=== PATIENT | male | born 1955 | race Caucasian/White ===

== ENCOUNTER 2020-04-23 23:49 | Emergency (ER) | payer MEDICARE, SELFPAY ==
--- NOTE | ~2020-04-23 | CT_ITS ---
EXAMINATION: CT abdomen pelvis w con DATE: 04/24/2020 01:08 INDICATION: Low abdominal pain. TECHNIQUE: Computed tomography (CT) of the abdomen and pelvis was performed with 100 mL Omnipaque 350 intravenous contrast. Automated exposure control and iterative reconstruction technique were employe d. The dose-length product was 1248.82 mGy-cm. COMPARISON: CT abdomen and pelvis 04/03/2019 FINDINGS: The visualized portions of the lung bases demonstrate mild atelectasis. No pleural effusion . The heart size is normal. No pericardial effusion. There is a 4 mm cyst in the liver. The spleen, p ancreas, and adrenal glands are normal. There are gallstones in the gallbladder, which is normal in s ize. There is a 1 mm stone in right kidney. There is mild right hydronephrosis and hydroureter. There is a 2 mm stone at right ureterovesicular junction. There is a right inguinal hernia containing a po rtion of the bladder. There is a left inguinal hernia containing fat. There are cysts in left kidney measuring up to 1.5 cm. The prostate is mildly enlarged. There is diverticulosis of the colon without evidence of diverticulitis. There are no dilated loops of bowel. The appendix is normal. There are n o pathologically enlarged lymph nodes. There is no free intraperitoneal fluid. There is moderate lumb ar spondylosis. Thoracolumbar levoscoliosis is noted. IMPRESSION: 1. 2 mm stone at right ureterovesicular junction with mild right hydronephrosis and hydroureter. 2. 1 mm nonobstructing right kidney stone. 3. Right inguinal hernia containing a portion of the bladder. Left inguinal hernia containing fat. 4. Cholelithiasis. Reviewed, dictated and finalized at location A. IMPRESSION: 1. 2 mm stone at right ureterovesicular junction with mild right hydronephrosis and hydroureter. 2. 1 mm nonobstructing right kidney stone. 3. Right inguinal hernia containing a portion of the bladder. Left inguinal her karyna containing fat. 4. Cholelithiasis.
[2020-04-24 00:02] VITALS: BP 156/77; PULSE 57; RESP 14; TEMP 36.6; O2SAT 98
--- NOTE | 2020-04-24 00:09 | ED.ABDPAIN ---
HPI - Abdominal Pain General Chief Complaint: Abdominal Pain Stated Complaint: abd pain Time Seen by Provider: 04/24/20 00:01 History of Present Illness HPI narrative: Intermittent lower abdominal aleksander for about the past 4 hours. moves around the abdomen and sometimes to the back. Feels like pressure. Associated with a feeling of needing to have a bowel movement. Additionally noted bulging in the right inguinal region. Pain is currently mild. He has a h/o untreated prostate cancer. He reports mild dysuria and difficulty fully emptying his bladder. No different than usual. Related Data Allergies Allergy/AdvReac Type Severity Reaction Status Date / Time NKDA Allergy Unknown Uncoded 04/13/11 16:16 Review of Systems Review of Systems: All systems reviewed & are unremarkable except as noted in HPI and below Constitutional: Constitutional: Denies chills and Denies fever(s) Cardiovascular: Cardiovascular: Denies chest pain Respiratory: Respiratory: Denies dyspnea Gastrointestinal: Gastrointestinal: Reports abdominal pain, Denies diarrhea, Reports nausea and Denies vomiting Genitourinary: Genitourinary: Denies hematuria, Reports dysuria, Denies testicular pain, Denies urinary frequency and Denies urinary incontinence Musculoskeletal: Musculoskeletal: Reports back pain Neurologic: Denies dizziness and Denies weakness [facility] Past Medical History Medical History (Updated 04/25/20 @ 00:00 by Jonah Cantu) Prostate cancer Social History Social History (Updated 04/24/20 @ 00:14 by Les Diez MD) Smoking status: Never smoker Exam Const: General: healthy appearing, no acute distress and alert Orientation/consciousness: patient oriented x3 HENMT: Head: normal to inspection Neck: Neck: normal visual inspection and no lymphadenopathy Chest: Chest palpation & inspection: no tenderness Resp: Effort & Inspection: normal respiratory effort Auscultation: clear to auscultation bilaterally, no rales, no rhonchi and no wheezes Cardio: Jugular venous distension: no JVD Rate: regular rate Rhythm: regular rhythm Heart sounds: no murmurs GI: Inspection: non-distended GI Palp: Yes Soft to palpation, Yes Tenderness to palpation present (GI) (right inguinal region, full without palpable hernia), No Guarding due to palpation present (GI) and No Rebound tenderness present Skin: General skin exam: normal color Neuro: General: patient oriented x3 and moves all extremities Speech: normal speech Extrem: General: no edema Psych: Appearance: well kempt Affect: normal affect Course Vital Signs Vital signs: Vital Signs Temperature 36.6 C 04/24/20 00:02 Pulse Rate 57 L 04/24/20 00:02 Respiratory Rate 14 04/24/20 00:02 Blood Pressure 156/77 H 04/24/20 00:02 Pulse Oximetry 98 04/24/20 00:02 Temperature 36.6 C 04/24/20 02:14 Pulse Rate 61 04/24/20 02:14 Respiratory Rate 14 04/24/20 02:14 Blood Pressure 143/83 H 04/24/20 02:14 Pulse Oximetry 97 04/24/20 02:14 MDM - Abdominal Pain MDM Narrative Medical decision making narrative: Kidney stone passed into bladder. Symptoms resolved. Differential Diagnosis Differential diagnosis: Likely calculus of kidney, constipation, diverticulitis and other (hernia) Medical Records Attestation: I reviewed the patient's medical records. Lab Data Attestation: I reviewed the patient's lab results. Result diagrams: 04/24/20 00:33 04/24/20 00:33 Labs: Lab Results 04/24/20 04/24/20 04/24/20 Range/Units 00:33 00:33 00:33 WBC 11.1 H (4.5-10.0) K/mm3 RBC 4.99 (4.6-6.20) M/mm3 Hgb 15.5 (14.0-18.0) g/dL Hct 45.5 (42.0-52.0) % MCV 91.2 (80-100) fl MCH 31.1 (26-34) pg MCHC 34.1 (32-36) g/dl RDW 13.9 (11.5-14.5) % Plt Count 331 (150-375) k/mm3 MPV 10.5 H (7.4-10.4) fl Immature Gran % (Auto) 0.3 (0-0.5) % Neut % (Auto) 76.6 H (45.5-73.1) % Lymph % (Au
[2020-04-24 00:39] LABS: Basophils Percent Auto 0.4 % (0.2-1.2); Eosinophils Absolute Auto 0.2 K/mm3 (0-0.3); Hematocrit 45.5 % (42.0-52.0); Hemoglobin 15.5 g/dL (14.0-18.0); Immature Granulocyte Absolute 0.03 K/mm3 (0.00-0.031); Immature Granulocyte Percent A 0.3 % (0-0.5); Lymphocytes Absolute Auto 1.59 K/mm3 (0.9-3.2); Lymphocytes Percent Auto 14.3 % (18.3-44.2); Mean Corpuscular HGB Conc 34.1 g/dl (32-36); Mean Corpuscular Hemoglobin 31.1 pg (26-34); Mean Corpuscular Volume 91.2 fl (80-100); Mean Platelet Volume 10.5 fl (7.4-10.4); Monocytes Absolute Auto 0.7 K/mm3 (0.1-0.6); Monocytes Percent Auto 6.4 % (2.6-8.5); Neutrophils Absolute Auto 8.5 K/mm3 (1.3-6.7); Neutrophils Percent Auto 76.6 % (45.5-73.1); Platelet Count Result 331 k/mm3 (150-375); Red Blood Count 4.99 M/mm3 (4.6-6.20); Red Cell Distribution Width 13.9 % (11.5-14.5); White Blood Count 11.1 K/mm3 (4.5-10.0)
[2020-04-24 00:44] LABS: Add Urine Microscopic? YES; Appearance Urine Clear (Clear); Bilirubin Urine Negative (Negative); Blood Urine Negative (Negative); Calcium Oxalate Crystals Urine Present /hpf; Color Urine Yellow (Yellow); Glucose Urine UA Negative (Negative); Ketones Urine Trace mg/dL (Negative); Leukocyte Esterase Ur Negative LEU/UL (Negative); Mucus Urine Moderate /lpf; Nitrate Urine Negative (Negative); Protein Urine 2+ mg/dL (Negative); Squamous Epithelial Cell Urine Rare /hpf (Few); WBC Urine 0-3 /hpf
[2020-04-24 00:46] LABS: Specific Grav Ur 1.033 (1.001-1.035)
[2020-04-24 00:54] LABS: Alanine Aminotransferase 46 U/L (4-50); Albumin Level 4.7 g/dL (3.5-5.1); Alkaline Phosphatase 75 U/L (38-126); Anion Gap 12 mmol/L (8-16); Aspartate Amino Transferase 37 U/L (17-59); Bilirubin,Total 0.7 mg/dL (0.2-1.3); Blood Urea Nitrogen 24 mg/dL (9-20); Calcium 10.5 mg/dL (8.4-10.2); Carbon Dioxide 26 mmol/L (22-30); Chloride 103 mmol/L (98-107); Estimated CRCL calculation 66 ml/min; Estimated Glomerular Filt Rate > 60; Glucose 156 mg/dL (75-110); Lipase 52 U/L (23-300); Potassium 4.5 mmol/L (3.4-5.0); Sodium 141 mmol/L (137-145)
[2020-04-24 01:07] VITALS: BP 149/76; PULSE 56; RESP 16; O2SAT 98
[2020-04-24 02:14] VITALS: BP 143/83; PULSE 61; RESP 14; TEMP 36.6; O2SAT 97
== END 2020-04-24 02:17 | disposition home or self-care (01) ==
PROVIDERS: Emergency Provider Emergency Medicine; PCP Family Medicine Adolescent Medicine
DX: N13.2 Hydronephrosis with renal and ureteral calculous obstruction (principal); K40.90 Unilateral inguinal hernia, without obstruction or gangrene, not specified as recurrent; K80.20 Calculus of gallbladder without cholecystitis without obstruction
CPT/HCPCS: 36415; 74177; 80053; 81001; 83690; 85025; 99284; Q9967

== ENCOUNTER 2020-10-20 13:52 | Outpatient (CLI) | payer MEDICARE, SELFPAY ==
--- NOTE | ~2020-10-20 | XR_ITS ---
EXAMINATION: XR chest 2V DATE: 10/20/2020 15:14 INDICATION: Malignant neoplasm of prostate. TECHNIQUE: Frontal and lateral views of the chest were obtained. COMPARISON: Chest 2 views 04/03/2019, CT abdomen and pelvis 04/24/2020 FINDINGS: The chest demonstrates clear lungs without pneumonia, pleural effusion, or pneumothorax. Th e heart size is normal. No sclerotic bone lesions are identified. IMPRESSION: 1. No acute cardiopulmonary disease. Reviewed, dictated and finalized at location A.
--- NOTE | 2020-10-20 14:51 | ECG_ITS ---
Measurements Intervals [place] Rate: 44 P: 56 [place]: 191 QRS: -18 QRSD: 125 T: 18 QT: 423 QTc: 365 Interpretive Statements SINUS BRADYCARDIA INTRAVENTRICULAR CONDUCTION DELAY ABNORMAL ECG Electronically Signed On 10-20-2020 16:54:39 CDT by Robert Watson D.O.
[2020-10-20 15:19] LABS: Basophils Percent Auto 0.5 % (0.2-1.2); Eosinophils Absolute Auto 0.3 K/mm3 (0-0.3); Eosinophils Percent Auto 4.4 % (0-4.4); Hematocrit 46.9 % (42.0-52.0); Hemoglobin 15.5 g/dL (14.0-18.0); Immature Granulocyte Absolute 0.01 K/mm3 (0.00-0.031); Immature Granulocyte Percent A 0.1 % (0-0.5); Lymphocytes Absolute Auto 2.31 K/mm3 (0.9-3.2); Lymphocytes Percent Auto 31.6 % (18.3-44.2); Mean Corpuscular Hemoglobin 30.3 pg (26-34); Mean Corpuscular Volume 91.6 fl (80-100); Mean Platelet Volume 10.7 fl (7.4-10.4); Monocytes Absolute Auto 0.8 K/mm3 (0.1-0.6); Monocytes Percent Auto 10.9 % (2.6-8.5); Neutrophils Absolute Auto 3.8 K/mm3 (1.3-6.7); Neutrophils Percent Auto 52.5 % (45.5-73.1); Platelet Count Result 289 k/mm3 (150-375); Red Blood Count 5.12 M/mm3 (4.6-6.20); Red Cell Distribution Width 14.1 % (11.5-14.5); White Blood Count 7.3 K/mm3 (4.5-10.0)
[2020-10-20 15:23] LABS: Add Urine Microscopic? YES; Appearance Urine Clear (Clear); Bilirubin Urine Negative (Negative); Blood Urine 1+ (Negative); Color Urine Yellow (Yellow); Glucose Urine UA Negative (Negative); Ketones Urine Negative (Negative); Leukocyte Esterase Ur Negative LEU/UL (Negative); Mucus Urine Rare /lpf; Nitrate Urine Negative (Negative); Protein Urine 1+ mg/dL (Negative); RBC Urine 21-50 /hpf (0-2); Specific Grav Ur 1.025 (1.001-1.035); Urobilinogen Urine Negative mg/dL (<2.0); WBC Urine 0-3 /hpf
[2020-10-20 15:26] LABS: INR 0.9; Prothrombin Time 12.2 Seconds (11.1-14.7)
[2020-10-20 15:27] LABS: Partial Thromboplastin Time 27.8 SECONDS (22.3-36.8)
[2020-10-20 15:32] LABS: Alanine Aminotransferase 36 U/L (4-50); Alkaline Phosphatase 65 U/L (38-126); Anion Gap 8 mmol/L (8-16); Aspartate Amino Transferase 31 U/L (17-59); Bilirubin,Total 0.6 mg/dL (0.2-1.3); Blood Urea Nitrogen 22 mg/dL (9-20); Calcium 9.8 mg/dL (8.4-10.2); Carbon Dioxide 32 mmol/L (22-30); Chloride 102 mmol/L (98-107); Estimated Glomerular Filt Rate > 60; Glucose 124 mg/dL (75-110); Sodium 142 mmol/L (137-145)
== END 2020-10-20 13:53 | disposition home or self-care (01) ==
LOC: ANHSURGERY 13:54
PROVIDERS: PCP Family Medicine Adolescent Medicine; Visit Provider Urology
DX: Z01.818 Encounter for other preprocedural examination (principal); C61 Malignant neoplasm of prostate; R00.1 Bradycardia, unspecified; I45.4 Nonspecific intraventricular block
CPT/HCPCS: 36415; 71046; 80053; 81001; 85025; 85610; 85730; 86850; 86900; 86901; 93005

== ENCOUNTER → 2020-10-26 01:42 | Outpatient (CLI) | payer MEDICARE, SELFPAY ==
[2020-10-26 19:04] LABS: SARS-CoV-2 RNA PCR Negative
== END ==
PROVIDERS: PCP Family Medicine Adolescent Medicine; Visit Provider Urology
DX: Z01.812 Encounter for preprocedural laboratory examination (principal); Z20.822 Contact with and (suspected) exposure to COVID-19
CPT/HCPCS: C9803; U0003; U0005

== ENCOUNTER 2020-10-29 01:44 | Day surgery (SDC) | payer MEDICARE, SELFPAY ==
[2020-10-20 14:17] VITALS: BP 144/80; PULSE 54; RESP 20; TEMP 36.8; O2SAT 96; BMI 35.9
--- NOTE | 2020-10-22 07:03 | PM.IMHP ---
H&P: HPI History of Present Illness Date/Time: 10/22/20 07:03 The patient is a 65-year-old male who was found to have PSA elevation and October 27-.. Prostate ultrasound and biopsy revealed a 32 cc prostate with 6 of 12 cores showing [place] 6 and 3+4=7 adenocarcinoma consistent with a unfavorable intermediate risk prostate cancer. Sehy opted for active surveillance. Genomic testing was consistent with an unfavorable intermediate risk prostate cancer. MRI of the prostate revealed possible extracapsular extension on the right with possible perineural invasion. After careful consideration of the options, including ongoing active surveillance, radiation therapy in its various forms and robotic prostatectomy he has elected for the latter. He is aware the risk of this including, but not limited to, adverse cardiopulmonary events, rectal injury, urinary incontinence and erectile dysfunction. during the course of evaluation is CT scan of the abdomen pelvis showed no evidence of metastatic disease but revealed a sizable right inguinal hernia with protrusion his bladder into the hernia. Patient has been seen by Dr. Dontae Gabriel and we coordinated a approach where he will be available for robotic assisted hernia repair. Chief Complaint: Prostate cancer Review of Systems Cardiovascular: Cardiovascular: Denies chest pain, Denies lightheadedness, Denies palpitations and Denies dyspnea Respiratory: Respiratory: Denies dyspnea Gastrointestinal: Gastrointestinal: Denies diarrhea, Denies nausea and Denies vomiting Genitourinary: Genitourinary: Denies hematuria and Denies dysuria Endocrine: Endocrine: Denies palpitations [facility] Past Medical History Medical History Asthma Glaucoma Hyperlipidemia Kidney calculi Prostate cancer Type 2 diabetes mellitus Surgical History Surgical History Hx of arthroscopy of right knee Hx of tonsillectomy Family History Family History Father Dementia Acute myocardial infarction Heart disease Mother Family history of thyroid problem History of diverticulitis Grandparent Lung cancer Diabetes mellitus Heart disease Social History Social History Smoking packs per day: 1 Smoking cigarettes per day: 20.0 Years smoked: 30 Smoking pack-years: 30.00 Smoking status: Former smoker Tobacco type: cigarettes Additional smoking assessment comments: [place] QU[place] 2004? Alcohol intake: current Substance use: never Substance use type: does not use Gender identity (if verbalized by the patient): Male Spiritual care concerns: No Meds Home Medications and Allergies Home Medications Medication Instructions Recorded Confirmed Type albuterol sulfate 1.25 mg/3 mL 1.25 mg INHALATION Q4-6H PRN 09/29/20 10/20/20 History solution for nebulization atorvastatin 40 mg tablet 40 mg PO QAM 09/29/20 10/20/20 History brimonidine 0.2 %-timolol 0.5 % 1 drp EACH EYE Q12H 09/29/20 10/20/20 History eye drops latanoprost 0.005 % eye drops 1 drp EACH EYE HS 09/29/20 10/20/20 History tamsulosin 0.4 mg capsule 0.4 mg PO QAM 09/29/20 10/20/20 History aspirin [Aspir-81] 81 mg PO DAILY 10/20/20 10/20/20 History metformin 2,000 mg PO HS 10/20/20 10/20/20 History multivitamin [Multi-Vitamin] 1 tablet PO DAILY 10/20/20 10/20/20 History Allergies Allergy/AdvReac Type Severity Reaction Status Date / Time shrimp Allergy Intermediate Rash Verified 10/20/20 14:09 Exam Const: General: no acute distress Resp: Effort & Inspection: normal respiratory effort GI: Inspection: non-distended GI Palp: No abdominal tenderness and No Guarding due to palpation present (GI) Auscultation: normal bowel sounds Assessment and Plan Assessment and plan (1) Prostate cancer:
--- NOTE | 2020-10-28 10:09 | WPDANESEPPF ---
Anes - Initial Pre Proc Eval Procedure: Operation Date: 10/29/20 07:30 Proposed Procedures p Robotic Assisted Prostatectomy with Bilateral Pelvic Lymph Node Dissection - Devan Soalno MD s Laparoscopic Right Inguinal Hernia Repair With Mesh, Possible Left Inguinal Hernia Repair, Davinci Assisted - Oz Gabriel DO Date/Time: 10/28/20 10:09 Surgeon: Devan Solano MD Pre Op Diagnosis: prostate CA, Right Inguinal Hernia Patient Data Age: 65 Gender: M Height: 1.68 m Weight: 101 kg Last Vital Signs Temp 36.8 C 10/20/20 14:17 Pulse 54 L 10/20/20 14:17 Resp 20 10/20/20 14:17 BP 144/80 H 10/20/20 14:17 Pulse Ox 96 10/20/20 14:17 Allergies Allergy/AdvReac Type Severity Reaction Status Date / Time shrimp Allergy Intermediate Rash Verified 10/29/20 05:56 Home Medications Medication Instructions Recorded Confirmed Type albuterol sulfate 1.25 mg/3 mL 1.25 mg INHALATION Q4-6H PRN 09/29/20 10/29/20 History solution for nebulization atorvastatin 40 mg tablet 40 mg PO QAM 09/29/20 10/29/20 History brimonidine 0.2 %-timolol 0.5 % 1 drp EACH EYE Q12H 09/29/20 10/29/20 History eye drops latanoprost 0.005 % eye drops 1 drp EACH EYE HS 09/29/20 10/29/20 History tamsulosin 0.4 mg capsule 0.4 mg PO QAM 09/29/20 10/29/20 History aspirin [Aspir-81] 81 mg PO DAILY 10/20/20 10/29/20 History metformin 2,000 mg PO HS 10/20/20 10/29/20 History multivitamin [Multi-Vitamin] 1 tablet PO DAILY 10/20/20 10/29/20 History ECG: Date of Service: 10/20/20 Procedure(s): CA 12 lead EKG Accession Number(s): [id number] cc: ~ Measurements Intervals [place] Rate: 44 P: 56 [place]: 191 QRS: -18 QRSD: 125 T: 18 QT: 423 QTc: 365 Interpretive Statements SINUS BRADYCARDIA INTRAVENTRICULAR CONDUCTION DELAY ABNORMAL ECG Electronically Signed On 10-20-2020 16:54:39 CDT by Robert Watson D.O. Dictated By: Robert Watson DO 10/20/20 [id number] Patient hx anesthesia problems: none Family hx anesthesia problems: none PMFSH Past Medical History Medical History (Updated 10/28/20 @ 10:11 by Roney Spann MD) Asthma BMI 36.0-36.9,adult Glaucoma Hyperlipidemia Kidney calculi Prostate cancer Right inguinal hernia Type 2 diabetes mellitus Surgical History Surgical History Hx of arthroscopy of right knee Hx of tonsillectomy Family History Family History Father Dementia Acute myocardial infarction Heart disease Mother Family history of thyroid problem History of diverticulitis Grandparent Lung cancer Diabetes mellitus Heart disease Social History Social History Smoking packs per day: 1 Smoking cigarettes per day: 20.0 Years smoked: 30 Smoking pack-years: 30.00 Smoking status: Former smoker Tobacco type: cigarettes Additional smoking assessment comments: STATES QUIT 2004? Alcohol intake: current Alcohol use details: STATES RARELY 2-3 DRINKS MONTH Substance use: never Substance use type: does not use Living arrangements: with family Gender identity (if verbalized by the patient): Male Spiritual care concerns: No Anes - Eval Final PreProcedure Day of Procedure 10/28/20 10:09 Patient weight: obese Heart: regular rate and rhythm Lungs: clear to auscultation and normal air movement Airway: Mallampati scale class II Neurological: alert and oriented Last oral intake: >/= 8 hours ASA classification: III Emergent: no Anesthetic plan: proceed Anesthesia type and monitoring: general ETT Informed Consent
[2020-10-29] VITALS (11 sets, daily range): BP systolic 107–151; BP diastolic 51–83; PULSE 44–62; RESP 10–16; TEMP 36.2–36.8; O2SAT 97–100
[2020-10-29] MEDS: LACTATED RINGERS 1,000 ML 30 ML IV CONT ×2 (06:25→13:03)
[2020-10-29] MEDS: KETOROLAC 15 MG/ML VIAL (*BKC) IV PUSH ×2 (06:27→20:47)
[2020-10-29] MEDS: ACETAMINOPHEN 500 MG TABLET 1000 MG PO (06:28)
[2020-10-29 06:35] LABS: Glucose Point of Care 108 (65-105)
--- NOTE | 2020-10-29 06:39 | WPDHPUPDATE1 ---
History and Physical Update Update Date/Time: 10/29/20 06:39 History and Physical has been reviewed, including an updated exam of the patient. There are NO changes in the patient's condition. Risks, benefits, and alternatives have been discussed and questions answered. Patient agrees to proceed with procedure.
--- NOTE | 2020-10-29 07:18 | WPDHPUPDATE1 ---
History and Physical Update Update Date/Time: 10/29/20 07:18 History and Physical has been reviewed, including an updated exam of the patient. There are NO changes in the patient's condition. Risks, benefits, and alternatives have been discussed and questions answered. Patient agrees to proceed with procedure.
[2020-10-29] MEDS: ceFAZolin 2 GM/D5W 50 ML 2 GM/50 ML BAG IVPB (07:34)
--- NOTE | 2020-10-29 10:42 | SUR.OPER ---
total u/a 100ml smith color urine. Urine esthela with mix insertion and pink post insertion and irrigation per Dr Solano.
--- NOTE | 2020-10-29 11:12 | SUR.OPER ---
[address] JIMENEZ.
[2020-10-29] MEDS: ceFAZolin SODIUM 1 GM VIAL IV PUSH (11:30)
--- NOTE | 2020-10-29 11:34 | SUR.OPER ---
PATIENT MAINTAINS POSITIONING:UNCHANGED. NELSON CONTINUES TO DRAIN MEDIUM PINK URINE.
--- NOTE | 2020-10-29 11:52 | PM.PROC ---
Procedure Note - Detailed Date of procedure: 10/29/20 Pre-op diagnosis: Prostate Cancer, Right Inguinal Hernia Post-op diagnosis: same Procedure performed: 1. Robotic-assisted, laparoscopic prostatectomy 2. Robitic-assisted right inguinal hernia repair (Dr. Gabriel) Description of procedure: The patient was brought to the operative suite, where he was prepped and draped in routine sterile fashion while in a dorsal lithotomy, deep Trendelenburg position. A supraumbilical 10 mm trocar was placed after insufflation of the abdomen with a Veress needle. Three robotic ports were then placed under direct vision. Two of these were placed in the right lower quadrant - 10 cm and 20 cm lateral to, and in line with, the umbilicus. A third robotic trocar was placed 10 cm to the left of the umbilicus, and 20 cm to the left of the umbilicus, a 12 mm standard laparoscopic trocar was placed to be used as an bus assistant port. Lastly, a 5 mm trocar was placed in the left upper quadrant midway between the umbilicus and the left robotic trocar. Attention was then turned to the prostatectomy. I opted for a posterior approach in this patient. An incision was made in the parietal peritoneum along the posterior bladder/posterior prostate about 2 cm above the reflection of the peritoneum over the anterior rectum. The seminal vesicles and vas deferens were immediately identified. Dissection is undertaken in a fashion so as to avoid electrocautery as much as possible, particularly near the tips of the seminal vesicles. Dissection was also carried out in the midline so as to avoid any encounters with the ureters. The vas deferens and the seminal vesicles were dissected in their entirety to the base of the prostate. The plane anterior to Denoviller's fascia, anterior to the rectum and posterior to the prostate was then developed. The bladder is known to have herniated into the right inguinal canal the preoperative CT scan. After incising the peritoneum along the anterior abdominal wound was able to reduce the herniated dome of the bladder. There is a large hernia defect in the right inguinal canal. The bladder was then dropped from the anterior abdominal and pelvic wall. Repair of this hernia will be undertaken by Dr. Gabriel at the termination of the prostatectomy.The endopelvic fascia was identified and incised bilaterally, allowing for dissection of the posterior-lateral aspect of the prostate. The puboprostatic ligaments were transected near their origin from the posterior pubic ramus. This posterior lateral dissection of the prostate is also undertaken in a fashion so as to avoid electrocautery as much as possible. The dorsal vein of the penis is then secured with an 0 -Vicryl ligature. Attention is then turned to the bladder neck. The anterior bladder neck is incised at the vesico-prostatic junction. The previously placed urethral catheter was drawn through the urethrotomy. A very small bladder neck was maintained throughout the remainder of this dissection. The posterior bladder neck was incised in a fashion so as to avoid any injury to the ureteral orifices. Again, the small aperture of the bladder neck was maintained. The previously dissected vas deferens and the seminal vesicles were brought through the posterior bladder neck incision. The lateral prostatic pedicles were then carefully dissected from the lateral aspect of the prostate bilaterally. The prostatic pedicles were secured with Weck clips and transected. The neurovascular bundles were carefully dissected from the posterior-lateral aspect of the prostate. The dorsal vein of the penis was incised with electrocautery. Using cold scissors, the urethra was incised. After withdrawing the previously placed urethral catheter, the posterior urethra was sharply incised, as was the rectalurethralis muscle. Attention was then turned to a bilateral pelvic lymphadenectomy. After inspection of the right iliac fossae opted
[2020-10-29] MEDS: BUPIVACAINE/EPINEPHRINE 0.5% 30 ML VIAL INFILTRATE (12:28)
--- NOTE | 2020-10-29 12:50 | PM.PROC ---
Procedure Note - Detailed Date of procedure: 10/29/20 Pre-op diagnosis: Right inguinal hernia Post-op diagnosis: same (Indirect right inguinal hernia) Procedure performed: Laparoscopic right inguinal hernia repair with Progrip mesh, da Leonides assisted Description of procedure: Procedure as well as risks, benefits, and alternatives were discussed with the patient. Written consent was obtained and placed in chart prior to procedure. Patient was brought back to surgical suite. He was placed supine on operating table. Time-out was done to confirm patient and procedure. He was then intubated by Anesthesia Department. His abdomen was prepped and draped in sterile fashion using chlorhexidine prep. Patient initially underwent robotic prostatectomy by Dr. Solano. Please refer to his operative report for details and port placement. I then proceeded with right inguinal hernia repair once his portion of the procedure was completed. I moved over to the robotic console and took control of the camera and instruments. After careful inspection of the abdominal cavity, I began scoring the peritoneum along the right lower quadrant using scissors with electrocautery. The more medial peritoneum had already been taken down with the bladder. The preperitoneal plane was entered and this was carefully dissected caudally along the inferior epigastric vessels. Careful dissection with scissors with electrocautery and blunt dissection was used to continue this dissection. I dissected far enough laterally to allow for mesh placement, and also dissected medially to identify the pubic arch and Michael's ligament which had already been skeletonized by Urology. The hernia sac was identified and carefully dissected posteriorly. The cord contents were also identified and the peritoneum was carefully dissected far enough posteriorly to allow for mesh placement. Once an adequate pocket was created, I then placed the mesh within the preperitoneal pocket and carefully unfolded it. The mesh was centered on the hernia defect with adequate overlap circumferentially. The inferior edge of the mesh was inspected to ensure that it was far enough away from the peritoneal edge. The mesh appeared in proper position overlying the entire myopectineal orifice. The peritoneum was then closed over the mesh using a 3-0 V-lock running absorbable suture. This took several running sutures to bring all of the peritoneum back over the mesh. The robotic instruments were removed. The robotic arms were disengaged from the ports and moved away from the bedside. The patient was flattened out in bed, the ports were removed under direct visualization, and the pneumoperitoneum was released. The Endo-Catch bag containing the prostate was then grasped and delivered through the supraumbilical port. the fascia of this port site was then extended about 1 cm cephalad. I then carefully extracted the Endo-Catch bag through this port site. The fascia of the supraumbilical incision was then reapproximated using 1. PDS running suture. Gonzalez's was then reapproximated using 3 0 plain gut simple interrupted sutures. The skin of the incisions was then approximated using 4 O Vicryl subcuticular sutures and then Exofin glue was applied on top. The patient was awakened from anesthesia, extubated, and transferred to recovery. Implants: Progrip Mesh 12cm x 16cm Anesthesia: GETA and local (0.5% bupivicaine with epi) Surgeon: Oz Gabriel DO Estimated blood loss (mL): 10 Complications: No immediate complications Condition: stable Disposition: observation Findings: This is a 65-year-old man who presented with a right groin bulge for the past 10-15 years. Over the past several months he has noticed pain in this area with activity. CT of his abdomen and pelvis was obtained in relation to workup for prostate cancer. CT showed evidence of a large right inguinal hernia as well as another small left inguinal hernia. On physical exam
[2020-10-29 13:12] LABS: Glucose Point of Care 171 (65-105)
[2020-10-29] MEDS: fentaNYL CITRATE INJ (*CRX) 100 MCG/2 ML VIAL 25 MCG IV PUSH ×4 (13:31→13:58)
--- NOTE | 2020-10-29 13:57 | SUR.PHASEI ---
[id number] sbar faxed floor notified
--- NOTE | 2020-10-29 14:20 | ADMGEN ---
This patient, Ervin Davidson, was admitted to Medical Room 248-. Patient/family oriented to hospital policies and general routines including ID bracelet, bed and alarms, visiting hours, pain management, procedures, bathroom and other care routines, personal items, smoking policy, room service/diet, and visiting hours. Information on how to activate the Rapid Response Team has been discussed. Patient/Family are encouraged to report perceived risks to care and to ask questions if they do not understand what they are told or what they should do.
[2020-10-29] MEDS: LACTATED RINGERS 1,000 ML 125 ML IV CONT ×2 (15:00→23:18)
[2020-10-29] MEDS: HYOSCYAMINE SULFATE 0.125 MG TABLET SUBLINGUAL (15:43)
[2020-10-29] MEDS: DOCUSATE SODIUM 100 MG CAPSULE PO (16:33)
[2020-10-29 16:36] LABS: Glucose Point of Care 118 (65-105)
[2020-10-29] MEDS: TIMOLOL MALEATE 0.5% OP SOLN 5 ML BOTTLE 1 DROP EACH EYE (17:27)
[2020-10-29] MEDS: BRIMONIDINE TARTRATE 0.2% OP SOLN 5 ML BTL 1 DROP EACH EYE (17:27)
[2020-10-29] MEDS: LATANOPROST 0.005% OP SOLN 2.5 ML BTL 1 DROP EACH EYE (17:27)
[2020-10-30] VITALS: BP 131/64; PULSE 55; RESP 16; TEMP 36.1; O2SAT 99
[2020-10-30 05:00] VITALS: BP 115/63; PULSE 52; RESP 16; TEMP 36.1; O2SAT 98
[2020-10-30 05:39] LABS: Hematocrit 37.3 % (42.0-52.0); Hemoglobin 12.5 g/dL (14.0-18.0)
[2020-10-30 06:07] LABS: Potassium 3.7 mmol/L (3.4-5.0)
[2020-10-30 06:18] LABS: Anion Gap 5 mmol/L (8-16); Blood Urea Nitrogen 8 mg/dL (9-20); Calcium 8.4 mg/dL (8.4-10.2); Carbon Dioxide 29 mmol/L (22-30); Chloride 105 mmol/L (98-107); Estimated CRCL calculation 88 ml/min; Estimated Glomerular Filt Rate > 60; Glucose 110 mg/dL (75-110); Sodium 139 mmol/L (137-145)
--- NOTE | 2020-10-30 06:40 | WPDUROPN2 ---
Progress Note: A&P Assessment and Plan (1) Prostate cancer: Code(s): C61 - Malignant neoplasm of prostate Status: Acute (2) Corneal abrasion: Code(s): S05.00XA - Injury of conjunctiva and corneal abrasion without foreign body, unspecified eye, initial encounter Status: Acute Assessment and Plan: Corneal abrasion protocol enacted. Increase diet/ambulation. Likely home later today. Subjective Subjective Date/Time Seen: 10/30/20 06:40 Right corneal irritation mildly uncomfortable - otherwise doing well. Review of Systems Cardiovascular: Cardiovascular: Denies chest pain, Denies lightheadedness, Denies palpitations and Denies dyspnea Respiratory: Respiratory: Denies dyspnea Gastrointestinal: Gastrointestinal: Denies diarrhea, Denies nausea and Denies vomiting Genitourinary: Genitourinary: Denies hematuria and Denies dysuria Endocrine: Endocrine: Denies palpitations Exam Const: General: no acute distress Resp: Effort & Inspection: normal respiratory effort GI: Inspection: non-distended GI Palp: No abdominal tenderness and No Guarding due to palpation present (GI) Auscultation: normal bowel sounds Objective Data Vital Signs Vital Signs: Vital Signs - 24 hr 10/29/20 13:05 10/29/20 13:20 10/29/20 13:35 Temperature 97.2 F L Pulse Rate 59 L 44 L 57 L Respiratory Rate 15 12 10 L Blood Pressure 107/52 L 115/51 L 129/73 Pulse Oximetry 100 100 100 10/29/20 13:50 10/29/20 14:20 10/29/20 14:35 Temperature 97.2 F L 97.2 F L Pulse Rate 62 58 L 54 L Respiratory Rate 10 L 16 16 Blood Pressure 120/83 134/72 130/66 Pulse Oximetry 98 97 97 10/29/20 15:05 10/29/20 16:05 10/29/20 19:56 Temperature 97.2 F L 98.2 F 97.1 F L Pulse Rate 54 L 59 L 57 L Respiratory Rate 16 16 16 Blood Pressure 151/74 H 143/70 H 124/59 L Pulse Oximetry 100 98 98 10/29/20 21:50 10/30/20 00:00 10/30/20 05:00 Temperature 96.9 F L 97.0 F L Pulse Rate 55 L 52 L Respiratory Rate 16 16 Blood Pressure 131/64 115/63 Pulse Oximetry 98 99 98 Intake/Output Intake/Output: Intake & Output 10/27/20 10/28/20 10/29/20 10/30/20 23:59 23:59 23:59 23:59 Intake Total 1950 400 Output Total 1500 1000 2300 Balance -1500 950 -1900 Meds/Results Medications: Active Medications Generic Name Dose Route Start Last Admin Trade Name Freq PRN Reason Stop Dose Admin Albuterol 1.25 mg 10/29/20 14:11 Albuterol Sulfate Neb 2.5 Mg/3 Ml Inh INHALATION Q4-6H PRN Wheezing Artificial Tears 1 drop 10/29/20 14:28 10/29/20 20:01 Artificial Tears Op Soln 15 Ml Bottle EACH EYE 1 drop Q2H PRN Administration Dry Eye(s) Atorvastatin Calcium 40 mg 10/30/20 09:00 Atorvastatin 40 Mg Tablet PO QAM JAYLON Brimonidine Tartrate 1 drop 10/29/20 21:00 10/29/20 17:27 Brimonidine Tartrate 0.2% Op Soln 5 Ml Btl EACH EYE 1 drop Q12HR JAYLON Administration Dextrose 12.5 gm 10/29/20 14:11 Dextrose 50% 25 Gm/50 Ml Syringe IV PUSH PRN PRN Hypoglycemia Protocol Docusate Sodium 100 mg 10/29/20 17:00 10/29/20 16:33 Docusate Sodium 100 Mg Capsule PO 100 mg BID JAYLON Administration Glucagon 1 mg 10/29/20 14:11 Glucagon For Inj 1 Mg Vial IM PRN PRN Hypoglycemia Protocol Glucose 15 gm 10/29/20 14:11 Glucose Oral Gel 15 Gm Of Glucse In 37.5 Gm Tube PO PRN PRN Hypoglycemia Protocol Hyoscyamine 0.125 mg 10/29/20 14:11 10/29/20 15:43 Hyoscyamine Sulfate 0.125 Mg Tablet SUBLINGUAL 0.125 mg Q4H PRN Administration Bladder Spasm Lactated Ringer's 1,000 mls @ 125 mls/hr 10/29/20 14:11 10/29/20 23:18 Lr - Lactated Ringers Iv IV CONT 125 mls/hr .Q8H JAYLON Administration Acetaminophen 1,000 mg in 100 mls @ 400 mls/hr 10/29/20 18:00 10/30/20 05:45 Ofirmev 1,000 Mg Ivpb IVPB 10/30/20 18:01 400 mls/hr Q6HR JAYLON Administration Dextrose 1,000 mls @ 100 mls/hr 10/29/20 14:11 De
[2020-10-30 07:56] VITALS: BP 118/72; PULSE 56; RESP 16; TEMP 35.7; O2SAT 98
[2020-10-30 07:58] LABS: Glucose Point of Care 113 (65-105)
--- NOTE | 2020-10-30 08:02 | PM.PNGS ---
Progress Note: A&P Assessment and Plan (1) Right inguinal hernia: Code(s): K40.90 - Unilateral inguinal hernia, without obstruction or gangrene, not specified as recurrent Status: Acute Assessment and Plan: Doing well from my standpoint, OK to discharge today. Follow up in 2 weeks as scheduled Subjective Subjective Date/Time Seen: 10/30/20 08:02 Interval history: Doing well. Pain controlled. Exam GI: Inspection: incision (intact with glue) GI Palp: No Hernia present Objective Data Vital Signs Vital Signs: Vital Signs - 24 hr 10/29/20 13:05 10/29/20 13:20 10/29/20 13:35 Temperature 36.2 C L Pulse Rate 59 L 44 L 57 L Respiratory Rate 15 12 10 L Blood Pressure 107/52 L 115/51 L 129/73 Pulse Oximetry 100 100 100 10/29/20 13:50 10/29/20 14:20 10/29/20 14:35 Temperature 36.2 C L 36.2 C L Pulse Rate 62 58 L 54 L Respiratory Rate 10 L 16 16 Blood Pressure 120/83 134/72 130/66 Pulse Oximetry 98 97 97 10/29/20 15:05 10/29/20 16:05 10/29/20 19:56 Temperature 36.2 C L 36.8 C 36.2 C L Pulse Rate 54 L 59 L 57 L Respiratory Rate 16 16 16 Blood Pressure 151/74 H 143/70 H 124/59 L Pulse Oximetry 100 98 98 10/29/20 21:50 10/30/20 00:00 10/30/20 05:00 Temperature 36.1 C L 36.1 C L Pulse Rate 55 L 52 L Respiratory Rate 16 16 Blood Pressure 131/64 115/63 Pulse Oximetry 98 99 98 Intake/Output Intake/Output: Intake & Output 10/27/20 10/28/20 10/29/20 10/30/20 23:59 23:59 23:59 23:59 Intake Total 1950 400 Output Total 1500 1000 2300 Balance -1500 950 -1900 Meds/Results Medications: Active Medications Generic Name Dose Route Start Last Admin Trade Name Freq PRN Reason Stop Dose Admin Albuterol 1.25 mg 10/29/20 14:11 Albuterol Sulfate Neb 2.5 Mg/3 Ml Inh INHALATION Q4-6H PRN Wheezing Artificial Tears 1 drop 10/29/20 14:28 10/29/20 20:01 Artificial Tears Op Soln 15 Ml Bottle EACH EYE 1 drop Q2H PRN Administration Dry Eye(s) Atorvastatin Calcium 40 mg 10/30/20 09:00 Atorvastatin 40 Mg Tablet PO QAM JAYLON Brimonidine Tartrate 1 drop 10/29/20 21:00 10/29/20 17:27 Brimonidine Tartrate 0.2% Op Soln 5 Ml Btl EACH EYE 1 drop Q12HR JAYLON Administration Dextrose 12.5 gm 10/29/20 14:11 Dextrose 50% 25 Gm/50 Ml Syringe IV PUSH PRN PRN Hypoglycemia Protocol Docusate Sodium 100 mg 10/29/20 17:00 10/29/20 16:33 Docusate Sodium 100 Mg Capsule PO 100 mg BID JAYLON Administration Glucagon 1 mg 10/29/20 14:11 Glucagon For Inj 1 Mg Vial IM PRN PRN Hypoglycemia Protocol Glucose 15 gm 10/29/20 14:11 Glucose Oral Gel 15 Gm Of Glucse In 37.5 Gm Tube PO PRN PRN Hypoglycemia Protocol Hyoscyamine 0.125 mg 10/29/20 14:11 10/29/20 15:43 Hyoscyamine Sulfate 0.125 Mg Tablet SUBLINGUAL 0.125 mg Q4H PRN Administration Bladder Spasm Lactated Ringer's 1,000 mls @ 125 mls/hr 10/29/20 14:11 10/29/20 23:18 Lr - Lactated Ringers Iv IV CONT 125 mls/hr .Q8H JAYLON Administration Acetaminophen 1,000 mg in 100 mls @ 400 mls/hr 10/29/20 18:00 10/30/20 05:45 Ofirmev 1,000 Mg Ivpb IVPB 10/30/20 18:01 400 mls/hr Q6HR JAYLON Administration Dextrose 1,000 mls @ 100 mls/hr 10/29/20 14:11 Dextrose 5% 1,000 Ml IVPB PRN PRN Hypoglycemia Protocol Insulin Aspart 2 - 5 units 10/29/20 17:00 10/29/20 16:31 Insulin Aspart (*Bkc) 100 Units/Ml SUB-Q Not Given TIDWM JAYLON Protocol Ketorolac Tromethamine 15 mg 10/29/20 14:11 10/29/20 20:47 Ketorolac 15 Mg/Ml Vial (*Bkc) IV PUSH 10/30/20 14:12 15 mg Q6H PRN Administration Pain Rated 4-6 Latanoprost 1 drop 10/29/20 21:00 10/29/20 17:27 Latanoprost 0.005% Op Soln 2.5 Ml Btl EACH EYE 1 drop HS JAYLON Administration Levofloxacin 500 mg 10/30/20 09:00 Levofloxacin Tab 500 Mg Tablet PO DAILY [facility] Naloxone HCl 0.1 mg 10/29/20 14:11 Naloxone Hcl
[2020-10-30] MEDS: LACTATED RINGERS 1,000 ML 125 ML IV CONT (08:06)
[2020-10-30] MEDS: DOCUSATE SODIUM 100 MG CAPSULE PO (08:08)
[2020-10-30 08:09] VITALS: RESP 18; O2SAT 100
[2020-10-30] MEDS: BRIMONIDINE TARTRATE 0.2% OP SOLN 5 ML BTL 1 DROP EACH EYE (08:09)
[2020-10-30] MEDS: TIMOLOL MALEATE 0.5% OP SOLN 5 ML BOTTLE 1 DROP EACH EYE (08:09)
[2020-10-30] MEDS: ATORVASTATIN 40 MG TABLET PO (08:09)
[2020-10-30] MEDS: KETOROLAC 15 MG/ML VIAL (*BKC) IV PUSH (11:05)
[2020-10-30] MEDS: HYOSCYAMINE SULFATE 0.125 MG TABLET SUBLINGUAL (11:05)
[2020-10-30 11:08] VITALS: BP 123/70; PULSE 55; RESP 18; TEMP 36.3; O2SAT 99
[2020-10-30 11:14] LABS: Glucose Point of Care 116 (65-105)
--- NOTE | 2020-10-30 13:13 | PM.DS ---
DS: Admitting Diagnosis Admitting Diagnosis Admitting Diagnosis: Prostate cancer Right inguinal hernia DS: Discharge Diagnosis Discharge Diagnosis (1) Prostate cancer: Code(s): C61 - Malignant neoplasm of prostate Status: Acute (2) Corneal abrasion: Code(s): S05.00XA - Injury of conjunctiva and corneal abrasion without foreign body, unspecified eye, initial encounter Status: Acute (3) Right inguinal hernia: Code(s): K40.90 - Unilateral inguinal hernia, without obstruction or gangrene, not specified as recurrent Status: Acute DS: Summary Hospital Course Hospital Course: This patient was admitted on the morning of his planned robotic prostatectomy. This procedure was uneventful, as was his postoperative course. By the evening of the procedure he was sitting at the bedside in tolerating a liquid diet. The following morning he was ambulating freely and tolerating regular food. His catheter drainage remained essentially clear throughout. His postoperative hemoglobin and serum creatinine were unremarkable. He had a mild corneal abrasion which improves significantly prior to discharge. At the time of discharge he has been instructed in appropriate care for his Singh catheter with both a leg bag and bedside bag. He will be discharged with plans to follow-up in 1 week with a cystogram. Time Spent with Patient Time attestation: Total time spent providing and/or coordinating discharge services: 20min Exam Const: General: no acute distress Resp: Effort & Inspection: normal respiratory effort GI: Inspection: non-distended GI Palp: No abdominal tenderness and No Guarding due to palpation present (GI) Auscultation: normal bowel sounds Urinary Catheter: Urinary Catheter: patent and draining and urine clear DS: Data Data Completed and Pending Pending studies at discharge: Pending at discharge 10/29/20 10:27 Surgical [PTH] Routine Surgical [PTH] Routine Labs on day of discharge: Labs from last 24 hours 10/30/20 10/30/20 10/30/20 11:07 07:54 05:02 Hgb Hct Sodium 139 Potassium 3.7 Chloride 105 Carbon Dioxide 29 Anion Gap 5 L BUN 8 L D Creatinine 0.80 Estim Creat Clear Calc 88 Estimated GFR > 60 Glucose 110 POC Capillary Glucose 116 H 113 H Calcium 8.4 10/30/20 10/29/20 05:02 16:30 Hgb 12.5 L D Hct 37.3 L Sodium Potassium Chloride Carbon Dioxide Anion Gap BUN Creatinine Estim Creat Clear Calc Estimated GFR Glucose POC Capillary Glucose 118 H Calcium Discharge Plan Discharge Patient Disposition: Home, Self-Care Discharge Instructions: 1) Singh catheter -> leg bag / bedside bag at night. 2) No lifting/straining >15lbs. x3 weeks. 3) No driving x1-week. 4) Resume normal, pre-operative diet. 5) My office will contact regarding follow-up in 1-week with cystogram. DISCHARGE INSTRUCTION SHEET FOR HERNIA, GALLBLADDER AND APPENDIX SURGERIES DR. BROOKS PATIENT TO TAKE HOME 1. May shower in 24 hours, no soaking in bath x 2weeks. 2. Call office for: Wound increasingly painful or bleeding Vomiting Fever of greater than 101 degrees 3. If no bowel movement for three days, take 1 oz. (30 ml) Milk of Magnesia or MiraLax 17g 1 to 2 times daily. 4. No heavy lifting > 10-15 pounds x 3 weeks for hernia repairs and 2 weeks for laparoscopic cholecystectomy or appendectomy. 5. No driving for 3 days or while taking narcotic pain medications. 6. Ice to surgical site for 48 hours (30 min on, then 30 min off). 7. Up walking 10-30 minutes three times per day. 8. Resume previous home medications. 9. Follow-up 10-14 days in office for wound check or as previously scheduled. ([phone]) 10. Oral pain medications prescription to be sent to pharmacy. Take Tylenol 500mg every 6 hours and Ibuprofen 600mg every 6
--- NOTE | 2020-10-30 13:39 | WPDANESPN ---
Anes - Prog Note Post-Op Date/Time: 10/30/20 13:39 Cardiovascular status: normal Respiratory status: normal Airway patency: baseline Mental status: baseline Post-Op hydration status: normal Vital Signs: Last Vital Signs Temp 36.3 C L 10/30/20 11:08 Pulse 55 L 10/30/20 11:08 Resp 18 10/30/20 11:08 BP 123/70 10/30/20 11:08 Pulse Ox 99 10/30/20 11:08 Pain Score (VAS): no complaints I/O: Intake & Output 10/29/20 10/30/20 10/30/20 23:59 07:59 15:59 Intake Total 1650 1500 2180 Output Total 800 2300 3650 Balance 850 800 -1470 Laboratory Tests 10/30/20 05:02 10/30/20 05:02 10/29/20 10/30/20 10/30/20 16:30 05:02 05:02 Hgb 12.5 L D Hct 37.3 L Sodium 139 Potassium 3.7 Chloride 105 Carbon Dioxide 29 Anion Gap 5 L BUN 8 L D Creatinine 0.80 Estim Creat Clear Calc 88 Estimated GFR > 60 Glucose 110 POC Capillary Glucose 118 H Calcium 8.4 10/30/20 10/30/20 07:54 11:07 Hgb Hct Sodium Potassium Chloride Carbon Dioxide Anion Gap BUN Creatinine Estim Creat Clear Calc Estimated GFR Glucose POC Capillary Glucose 113 H 116 H Calcium Post-procedural complaints: none Patient Feedback: Patient satisfied with anesthetic care.
== END 2020-10-30 14:25 | disposition home or self-care (01) ==
LOC: ANHSURGERY 13:00 → ANH2MED 14:50
PROVIDERS: Surgery; PCP Family Medicine Adolescent Medicine; Visit Provider Urology
PROC: 0VT04ZZ Resection of Prostate, Percutaneous Endoscopic Approach (ICD-10-PCS; CPT 55867; principal; 2020-10-29 07:30)
PROC: 8E0Y4CZ Robotic Assisted Procedure of Lower Extremity, Percutaneous Endoscopic Approach (ICD-10-PCS; CPT 49650; 2020-10-29 07:30)
DX: C61 Malignant neoplasm of prostate (principal); Z87.891 Personal history of nicotine dependence; K40.90 Unilateral inguinal hernia, without obstruction or gangrene, not specified as recurrent; Z79.82 Long term (current) use of aspirin; Z79.84 Long term (current) use of oral hypoglycemic drugs; Z79.51 Long term (current) use of inhaled steroids; J45.909 Unspecified asthma, uncomplicated; E11.9 Type 2 diabetes mellitus without complications; E78.5 Hyperlipidemia, unspecified; Z87.442 Personal history of urinary calculi; E66.9 Obesity, unspecified; Z68.35 Body mass index [BMI] 35.0-35.9, adult; R00.1 Bradycardia, unspecified; I45.9 Conduction disorder, unspecified; S05.00XA Injury of conjunctiva and corneal abrasion without foreign body, unspecified eye, initial encounter
CPT/HCPCS: 49650; 38571; 55866; S2900 ×2; 36415; 71046; 80048; 80053; 81001; 82948; 85014; 85018; 85025; 85610; 85730; 86850; 86900; 86901; 88305; 88307; 88309; 93005; A9270; C1781; C9803; J0131; J0330; J0690; J1885; J2250; J2405; J2704; J3010; J7030; J7120; Q9968; U0003; U0005

== ENCOUNTER 2020-11-05 12:53 | Outpatient (CLI) | payer MEDICARE, SELFPAY ==
--- NOTE | ~2020-11-05 | XR_ITS ---
EXAMINATION: XR cystogram EXAM DATE: 11/05/2020 13:37 INDICATION: Prostate cancer. Prostatectomy. TECHNIQUE: Fluoroscopic guidance used during cystogram performed by Dr. Jaspal Colon, radiologist, thr [facility] Singh catheter in place on patient arrival. An Omnipaque 350/saline solution was used and allowe d to infuse through the Singh catheter under gravity. Nursery Nurse image, fluoroscopic images and postevacua tion image were obtained. Total fluoroscopic time of 0.1. The DAP for this procedure was 13.4 mGym2 . A total of 18 images obtained for the exam. There is no prior study for comparison. FINDINGS: Nursery Nurse image is unremarkable. Patient tolerated approximately 350 milliliters of distention. Smooth bladder wall, no diverticula or ureteral reflux. No extravasation. IMPRESSION: Unremarkable cystogram. Reviewed, dictated and finalized at location A. IMPRESSION: Unremarkable cystogram.
== END 2020-11-05 12:54 | disposition home or self-care (01) ==
PROVIDERS: PCP Family Medicine Adolescent Medicine; Visit Provider Urology
DX: C61 Malignant neoplasm of prostate (principal)
CPT/HCPCS: 51600; 74430; Q9967

== ENCOUNTER 2021-09-23 08:31 | Emergency (ER) | payer MEDICARE, SELFPAY ==
--- NOTE | ~2021-09-23 | CT_ITS ---
EXAMINATION: CT abdomen pelvis wo con DATE: 09/23/2021 08:54 INDICATION: Kidney stone TECHNIQUE: Computed tomography (CT) of the abdomen and pelvis was performed without intravenous contr ast. The dose-length product was 1108.63 mGy-cm. Automated exposure control and iterative reconstruct ion technique were employed. COMPARISON: CT dated 04/24/2020 FINDINGS: Lung bases are unremarkable. Heart size normal. No significant pleural or pericardial effus ion. There is a 2 mm distal left ureteral stone with mild left hydronephrosis as well as left perinep hric and periureteral edema, consistent with obstructing stone. There are nonobstructing bilateral re nal stones. There are gallstones. Bladder is decompressed. The liver, spleen, pancreas, adrenal glands are unremarkable. Nonobstructive bowel gas pattern. Shilho l appendix. Small fat-containing umbilical hernia. There are small fat-containing inguinal hernias. M ild lumbar spondylosis. There is mild scoliosis. No significant vascular abnormality. No abnormal pel denise masses or fluid collections. IMPRESSION: 1. Distal left ureteral stone measuring 2 mm near the expected location of the UVJ. There is mild lef t hydronephrosis with perinephric/periureteral edema. 2: Nonobstructing bilateral nephrolithiasis. 3: Cholelithiasis. Reviewed, dictated and finalized at location B. IMPRESSION: 1. Distal left ureteral stone measuring 2 mm near the expected location of the UVJ. There is mild left hydronephrosis with perinephric/periureteral edema. 2: Nonobstructing bilateral nephrolithiasis. 3: Cholelithiasis.
[2021-09-23 08:28] VITALS: BP 130/75; PULSE 61; RESP 16; TEMP 37.4; O2SAT 97
--- NOTE | 2021-09-23 08:33 | ECG_ITS ---
Measurements Intervals [place] Rate: 41 P: 63 MD: 187 QRS: -18 QRSD: 112 T: 30 QT: 449 QTc: 372 Interpretive Statements SINUS BRADYCARDIA WITH SINUS ARRHYTHMIA INCOMPLETE RIGHT BUNDLE BRANCH BLOCK [90+ ms QRS DURATION, TERMINAL R IN V1/V2, 40+ ms S IN I/aVL/V4/V5/V6] SMALL ???U??? WAVE IS PRESENT, CONSIDER HYPOKALEMIA, MORE PRONOUNCED COMPARED TO THE PRIOR TRACING. COMPARED TO ECG 10/20/2020 15:04:35 SINUS ARRHYTHMIA NOW PRESENT INCOMPLETE RIGHT BUNDLE-BRANCH BLOCK NOW PRESENT Electronically Signed On 09-23-2021 14:00:27 CDT by Angie Koenig M.D.
[2021-09-23 08:34] VITALS: BP 130/75; PULSE 41; RESP 13; O2SAT 99
[2021-09-23 08:35] VITALS: PULSE 60; RESP 20; O2SAT 98
[2021-09-23 08:42] LABS: Basophils Percent Auto 0.4 % (0.2-1.2); Eosinophils Absolute Auto 0.1 K/mm3 (0-0.3); Eosinophils Percent Auto 1.5 % (0-4.4); Hematocrit 44.7 % (42.0-52.0); Hemoglobin 14.8 g/dL (14.0-18.0); Immature Granulocyte Absolute 0.03 K/mm3 (0.00-0.031); Immature Granulocyte Percent A 0.3 % (0-0.5); Lymphocytes Absolute Auto 1.41 K/mm3 (0.9-3.2); Lymphocytes Percent Auto 14.7 % (18.3-44.2); Mean Corpuscular HGB Conc 33.1 g/dl (32-36); Mean Corpuscular Volume 93.7 fl (80-100); Mean Platelet Volume 10.6 fl (7.4-10.4); Monocytes Absolute Auto 0.6 K/mm3 (0.1-0.6); Monocytes Percent Auto 6.7 % (2.6-8.5); Neutrophils Absolute Auto 7.4 K/mm3 (1.3-6.7); Neutrophils Percent Auto 76.4 % (45.5-73.1); Platelet Count Result 289 k/mm3 (150-375); Red Blood Count 4.77 M/mm3 (4.6-6.20); White Blood Count 9.6 K/mm3 (4.5-10.0)
[2021-09-23] MEDS: HYDROmorphone HCL INJ (*CRX) 1 MG/ML SYR 0.5 MG IV PUSH (08:42)
[2021-09-23] MEDS: SODIUM CHLORIDE 0.9% IV 1,000 ML 999 ML IV CONT (08:42)
[2021-09-23] MEDS: ONDANSETRON INJ 4 MG/2 ML VIAL 8 MG IV PUSH (08:42)
--- NOTE | 2021-09-23 08:44 | ED.ABDPAIN ---
HPI - Abdominal Pain General Chief Complaint: Abdominal Pain Stated Complaint: Flank pain Time Seen by Provider: 09/23/21 08:37 History of Present Illness HPI narrative: Patient is 66 years old white male came to the emergency room by ambulance because of severe pain left flank area radiating to left lower quadrant. Started at 3 AM while trying to go to the bathroom. Associated with nausea and dry heaves. History of kidney stone 2 years ago, today similar symptoms to the past. History of diabetes, hyperlipidemia, prostatectomy Related Data Home Medications Medication Instructions Recorded Confirmed albuterol sulfate 1.25 mg/3 mL 1.25 mg INHALATION Q4-6H PRN 09/29/20 11/13/20 solution for nebulization atorvastatin 40 mg tablet 40 mg PO QAM 09/29/20 11/13/20 brimonidine 0.2 %-timolol 0.5 % 1 drp EACH EYE Q12H 09/29/20 11/13/20 eye drops latanoprost 0.005 % eye drops 1 drp EACH EYE HS 09/29/20 11/13/20 aspirin 81 mg PO DAILY 10/20/20 11/13/20 metformin 2,000 mg PO HS 10/20/20 11/13/20 multivitamin 1 tablet PO DAILY 10/20/20 11/13/20 Allergies Allergy/AdvReac Type Severity Reaction Status Date / Time shrimp Allergy Intermediate Rash Verified 09/23/21 08:32 Review of Systems Review of Systems: CONSTITUTIONAL: Denies fever, chills, or sweats. EYES: Denies visual changes, redness, or discharge. ENT: Denies rhinorrhea, congestion, sore throat, or otalgia. CARDIOVASCULAR: Denies chest pain, palpitations, or edema. RESPIRATORY: Denies cough or dyspnea. GASTROINTESTINAL: Denies abdominal pain, nausea, vomiting, or diarrhea. GENITOURINARY: Denies dysuria or hematuria. SKIN: Denies rash or itching. MUSCULOSKELETAL: Denies back pain, joint pain, or myalgia. NEUROLOGIC: Denies headache, numbness, or weakness. PSYCHIATRIC: Denies anxiety or depression. [facility] Past Medical History Medical History Asthma Glaucoma History of prostate cancer Surgery 10/28 Kidney calculi Prostate cancer Surgery 10/28 Right inguinal hernia Type 2 diabetes mellitus Surgical History Surgical History H/O right inguinal hernia repair 10/28 History of prostatectomy 10/28 Hx of arthroscopy of right knee Hx of tonsillectomy Family History Family History Father Dementia Acute myocardial infarction Heart disease Mother Family history of thyroid problem History of diverticulitis Grandparent Lung cancer Diabetes mellitus Heart disease Social History Social History Smoking packs per day: 1 Smoking cigarettes per day: 20.0 Years smoked: 30 Smoking pack-years: 30.00 Smoking status: Former smoker Additional smoking assessment comments: STATES QUIT 2004? Alcohol intake: current Alcohol use details: STATES RARELY 2-3 DRINKS MONTH Substance use: never Substance use type: does not use Gender identity (if verbalized by the patient): Male Sexual Orientation (if Verbalized by the Patient): Straight or Heterosexual Spiritual care concerns: No Exam Narrative: General appearance: Well-developed, well-nourished, restless Skin: Normal color Head: Normocephalic, nontraumatic Eyes: Clear conjunctiva ENT: Oropharynx normal, ears normal, nose normal Neck: Supple, nontender Chest and respiratory: Airway patent, no respiratory distress, no accessory muscle use Heart: Regular rate/rhythm Abdomen: Soft, diffuse tenderness to left flank and left lower quadrant, no organomegaly, quiet bowel sounds Vascular: Normal peripheral pulses, normal capillary refill. Musculoskeletal: Normal range of motion, nontender back Neurologic: Alert and oriented ?3, RAIL SPLITTER is normal as tested, no gross motor deficit
[2021-09-23 08:52] LABS: Alanine Aminotransferase 44 U/L (4-50); Albumin Level 4.5 g/dL (3.5-5.1); Alkaline Phosphatase 63 U/L (38-126); Anion Gap 8 mmol/L (8-16); Aspartate Amino Transferase 39 U/L (17-59); Bilirubin,Total 0.8 mg/dL (0.2-1.3); Blood Urea Nitrogen 14 mg/dL (9-20); Calcium 9.4 mg/dL (8.4-10.2); Carbon Dioxide 29 mmol/L (22-30); Chloride 103 mmol/L (98-107); Estimated CRCL calculation 73 ml/min; Estimated Glomerular Filt Rate > 60; Glucose 181 mg/dL (65-110); Potassium 4.3 mmol/L (3.4-5.0); Sodium 140 mmol/L (137-145)
[2021-09-23 08:58] VITALS: O2SAT 97
[2021-09-23 09:00] VITALS: PULSE 53; RESP 17; O2SAT 97
[2021-09-23] MEDS: TAMSULOSIN HCL 0.4 MG CAPSULE PO (09:24)
[2021-09-23] MEDS: KETOROLAC 30 MG/ML VIAL (*BKC) IV PUSH (10:07)
[2021-09-23 10:08] LABS: Add Urine Microscopic? YES; Appearance Urine Cloudy (Clear); Bilirubin Urine Negative (Negative); Blood Urine 3+ (Negative); Color Urine Yellow (Yellow); Glucose Urine UA Negative (Negative); Ketones Urine Negative (Negative); Leukocyte Esterase Ur Negative LEU/UL (Negative); Mucus Urine Few /lpf; Nitrate Urine Negative (Negative); Protein Urine Negative (Negative); RBC Urine >75 /hpf (0-2); Specific Grav Ur 1.027 (1.001-1.035); Urobilinogen Urine Negative mg/dL (<2.0); WBC Urine 0-3 /hpf
[2021-09-23 10:15] VITALS: BP 106/59; PULSE 52; RESP 14
== END 2021-09-23 10:16 | disposition home or self-care (01) ==
PROVIDERS: Emergency Provider Emergency Medicine; PCP Family Medicine Adolescent Medicine
DX: N13.2 Hydronephrosis with renal and ureteral calculous obstruction (principal); E11.9 Type 2 diabetes mellitus without complications; E78.5 Hyperlipidemia, unspecified; J45.909 Unspecified asthma, uncomplicated; H40.9 Unspecified glaucoma; Z85.46 Personal history of malignant neoplasm of prostate; Z90.79 Acquired absence of other genital organ(s); Z87.891 Personal history of nicotine dependence; Z79.82 Long term (current) use of aspirin; Z79.4 Long term (current) use of insulin; K80.20 Calculus of gallbladder without cholecystitis without obstruction
CPT/HCPCS: 36415; 74176; 80053; 81001; 85025; 93005; 96361; 96374; 96375; 99284; A9270; J1170; J1885; J2405; J7030

== ENCOUNTER → 2021-10-01 13:14 | Outpatient (CLI) | payer MEDICARE, SELFPAY ==
--- NOTE | ~2021-10-01 | US_ITS ---
EXAMINATION: US renal BI DATE: 10/01/2021 13:43 INDICATION: Left ureteral stone TECHNIQUE: Multiple grayscale and Doppler ultrasound images of the kidneys were obtained. COMPARISON: CT, 09/23/2021 FINDINGS: The right kidney measures 11.6 x 6.8 x 6.5 cm. The left kidney measures 11.4 x 6 x 5.1 cm. There is a 1.8 cm cyst of the left kidney upper pole. The kidneys demonstrate normal parenchymal echo genicity. There is no hydronephrosis. The bladder is normal. IMPRESSION: 1. Normal kidneys without hydronephrosis. Reviewed, dictated and finalized at location B.
== END ==
PROVIDERS: Visit Provider Urology
DX: N20.1 Calculus of ureter (principal); N28.1 Cyst of kidney, acquired
CPT/HCPCS: 76775

== ENCOUNTER 2022-03-04 09:13 | Outpatient (CLI) | payer MEDICARE, SELFPAY ==
[2022-03-04 10:17] LABS: Anion Gap 9 mmol/L (8-16); Blood Urea Nitrogen 17 mg/dL (9-20); Calcium 9.6 mg/dL (8.4-10.2); Carbon Dioxide 30 mmol/L (22-30); Chloride 101 mmol/L (98-107); Estimated Glomerular Filt Rate > 60; Glucose 151 mg/dL (65-110); Potassium 4.5 mmol/L (3.4-5.0); Sodium 140 mmol/L (137-145)
== END 2022-03-04 09:14 | disposition home or self-care (01) ==
LOC: ANHSURGERY 09:20
PROVIDERS: Anesthesiology; PCP Family Medicine Adolescent Medicine; Visit Provider Urology
DX: N39.3 Stress incontinence (female) (male) (principal); E11.9 Type 2 diabetes mellitus without complications; Z01.818 Encounter for other preprocedural examination
CPT/HCPCS: 36415; 80048; 87086

== ENCOUNTER 2022-03-09 00:35 | Day surgery (SDC) | payer MEDICARE, SELFPAY ==
--- NOTE | 2022-03-02 13:39 | PC.NURSE ---
Report to the Outpatient Waiting Room, entrance under the green pavilion located off [facility], at time _1000 on date _03/09/22 . OR Time: __1200 . - You and your visitor will be asked to self-screen and do not enter if you have any COVID symptoms. - Only one visitor and NO children visitors are allowed at this time. - The patient visitor is requested to leave or wait in car when not with patient due to restrictions. - A mask is required within the hospital. Patients may have clear liquids (water, carbonated beverages, clear teas, apple juice) until 3 hours prior to surgery with a maximum of 20 ounces. - No food from midnight until time of surgery - Infants may have breast milk until 4 hours before surgery, formula 6 hours prior to surgery. - Children will be allowed to drink immediately following surgery. If applicable, please bring a bottle or sippy cup to assist with drinking. Juice, water, soda, and popsicles are readily available. For infants on formula, please bring formula the day of surgery. Pacifiers are allowed. Take the following medications with a SIP of water the morning of surgery: ____EYE DROPS Medications to discontinue per physician ____PT STATES ASPIRIN AND ALL VITAMINS AND SUPPLEMENTS 7 DAYS PRE OP PER DR ESCALANTE Date to take last dose__03/01/22 Please no make-up, nail tamazight, hairspray, perfume, deodorant, or body powder the day of surgery. No jewelry (including any body piercings) or valuables the day of surgery, leave them at home. Please take a shower or bath the night before, or the morning of, surgery with an antibacterial soap. Wear comfortable, loose fitting clothing. Children are encouraged to wear pajamas. - Jewelry must be removed prior to entering the operating room. Rings and piercings that are not removed may be cut off. - The hospital will not accept responsibility for valuables. - Please leave all valuables, including medications, at home the day of surgery. If you are going home after surgery, a licensed special events driver must drive you home. - NO public transportation without another adult. - We recommend that an adult stay with you for 24 hours following discharge. - We also recommend that you do not drive, make important decision, drink alcoholic beverages, or take any drugs that were not prescribed by your health care provider for at least 24 hours after your discharge time. For Pediatric surgeries, we recommend two adults accompany the child home (only one inside the building at this time). Follow any additional instructions given to you from your surgeon. If you or anyone in your household have experienced Covid symptoms in the past week, please notify your surgeon or the nurse liaison at the phone number below for possible testing. Telephone instructions given to ___PATIENT and asked if any additional questions and then verbalized understanding. Patient advised to call surgeon office or pre surgery nurse liaison [phone] if any additional questions.
[2022-03-02 13:49] VITALS: BMI 34.5
[2022-03-09] VITALS (13 sets, daily range): BP systolic 95–142; BP diastolic 41–84; PULSE 46–67; RESP 12–18; TEMP 36.1–37.3; O2SAT 97–100
[2022-03-09] MEDS: LACTATED RINGERS 1,000 ML 30 ML IV CONT ×2 (10:30→15:55)
[2022-03-09 10:36] LABS: Glucose Point of Care 146 mg/dl (65-105)
--- NOTE | 2022-03-09 11:09 | WPDANESEPPF ---
Anes - Initial Pre Proc Eval Procedure: Operation Date: 03/09/22 12:00 Proposed Procedures p Advanced Male Sling, Cystoscopy - Marely Antonio MD Date/Time: 03/09/22 11:09 Surgeon: Marely Antonio MD Pre Op Diagnosis: stress incontienence Patient Data Age: 66 Gender: M Height: 1.68 m Weight: 97.1 kg Allergies Allergy/AdvReac Type Severity Reaction Status Date / Time shrimp Allergy Intermediate Rash Verified 03/02/22 13:28 Home Medications Medication Instructions Recorded Confirmed Type albuterol sulfate 1.25 mg/3 mL 1.25 mg inhalation Q4-6H PRN 09/29/20 03/02/22 History solution for nebulization Wheezing brimonidine 0.2 %-timolol 0.5 % 1 drp EACH EYE Q12H 09/29/20 03/02/22 History eye drops (Combigan) latanoprost 0.005 % eye drops 1 drp EACH EYE HS 09/29/20 03/02/22 History aspirin 81 mg tablet,delayed 81 mg PO DAILY 10/20/20 03/02/22 History release multivitamin 1 tablet PO DAILY 10/20/20 03/02/22 History atorvastatin 40 mg tablet 40 mg PO QAM #90 tabs 10/26/21 03/02/22 Rx metformin 500 mg tablet,extended 2,000 mg PO DAILY #360 tabs 12/10/21 03/02/22 Rx release 24 hr sodium sul 1.479 gram-potas ch See Rx Instructions PO PER PKG DIR 12/15/21 03/02/22 Rx 0.188 gram-magnes sul 0.225 gram #24 tabs tablet (Sutab) Laboratory Tests 03/09/22 10:33 POC Capillary Glucose 146 mg/dl H mg/dl (65-105) Patient hx anesthesia problems: none Family hx anesthesia problems: none Results Review: All pre-operative results and documents have been reviewed as part of the pre-operative evaluation. [facility] Past Medical History Medical History Asthma Glaucoma History of prostate cancer Surgery 10/28 Kidney calculi Prostate cancer Surgery 10/28 Right inguinal hernia Type 2 diabetes mellitus Surgical History Surgical History H/O right inguinal hernia repair 10/28 History of prostatectomy 10/28 Hx of arthroscopy of right knee Hx of tonsillectomy Family History Family History Father Dementia Acute myocardial infarction Heart disease Mother Family history of thyroid problem History of diverticulitis Grandparent Lung cancer Diabetes mellitus Heart disease Social History Social History Smoking packs per day: 1 Smoking cigarettes per day: 20.0 Years smoked: 30 Smoking pack-years: 30.00 Smoking status: Former smoker Tobacco type: cigarettes Smoking end date: 07/10/04 Additional smoking assessment comments: STATES QUIT 2004? Alcohol intake: current Drinks per week: 2 Alcohol use details: STATES RARELY 2-3 DRINKS MONTH Substance use: never Substance use type: does not use Living arrangements: with family Gender identity (if verbalized by the patient): Male Sexual Orientation (if Verbalized by the Patient): Straight or Heterosexual Spiritual care concerns: No Anes - Eval Final PreProcedure Day of Procedure 03/09/22 11:09 Patient weight: obese Heart: regular rate and rhythm Lungs: clear to auscultation Airway: Mallampati scale class III Neurological: alert and oriented Last oral intake: >/= 8 hours ASA classification: III Emergent: no Anesthetic plan: proceed Anesthesia type and monitoring: general LMA and standard monitoring Results Review: All pre-operative results and documents have been reviewed as part of the pre-operative evaluation. Informed Consent: The patient's anesthetic plan and its attendant risks and benefits were discussed with the patient/family/POA. Questions were solicited and answers provided to the satisfaction of the patient/family/POA.
[2022-03-09] MEDS: ACETAMINOPHEN 500 MG TABLET 1000 MG PO (11:20)
--- NOTE | 2022-03-09 12:04 | WPDHPUPDATE1 ---
History and Physical Update Update Date/Time: 03/09/22 12:04 History and Physical has been reviewed, including an updated exam of the patient. There are NO changes in the patient's condition. Risks, benefits, and alternatives have been discussed and questions answered. Patient agrees to proceed with procedure.
[2022-03-09] MEDS: GENTAMICIN SULFATE INJ 390 MG in DEXTROSE 5% 100 ML 97.77 MG IVPB (12:45)
[2022-03-09] MEDS: ceFAZolin SODIUM 1 GM VIAL IRRIGATION (14:09)
[2022-03-09] MEDS: BUPIVACAINE HCL 0.25% PF 30 ML VIAL INFILTRATE (15:19)
--- NOTE | 2022-03-09 15:44 | W.PM.PROC2 ---
Procedure Note - Detailed Date of Procedure 03/09/22 Pre-op Diagnosis Post prostatectomy stress incontinence Post-op Diagnosis Same Procedure Performed 1. Placement of AMS Advance male sling. 2. Cystoscopy. Surgeon Marely Antonio MD Description of Procedure Informed consent was obtained. The patient was taken to the operating room and given preoperative IV antibiotics with vancomycin and gentamicin, the patient has received oral Levaquin for the past 48 hours at home, and has done a 3-day Hibiclens wash. The patient was induced with general anesthesia. We then shaved, and the patient received a Betadine scrub followed by ChloraPrep. The patient was in the dorsal lithotomy position. Drapes were placed and then again prepped with Chloraprep. A 16-Indonesian Singh catheter was inserted. We made a 4 cm incision in the perineum. We then dissected down and identified the bulbar spongiosis muscle. The muscle layer was opened. We identified the urethra and it was mobilized laterally as well as proximally. We did take down the central tendon for approximately 2-3 cm. This allowed mobilization of the urethra. We then irrigated copiously. We secured the mesh to the spongiosum with 3-0 Vicryl suture with the proximal end at point of dissection of central tendon. We used the Advance trocar passers to place the sling through the obturator foramen. Our initial attempt to place right-sided trocar was to lateral, therefore a 2nd stab incision was made more medially and the trocar passed nicely. There was good positioning noted. The catheter was removed. We then performed flexible cystoscopy. We inspected the urethra in the bladder. There was no injury from sling placement. We then tightened the sling. We did note that the sling did compress nicely with coaptation of the membranous urethra. 12-F Singh catheter was inserted. We then irrigated copiously. We then closed bulbar spongiosis with a 2-0 Vicryl suture. We then tunneled the arms of the sling into the perineal incision. We performed multiple layers of closure with 3-0 Vicryl suture and the skin was closed with a 3-0 Vicryl horizontal mattress. We reapproximated the skin at the stab incisions for placement of the trocars with 4-0 Monocryl. Dermabond glue was applied to all incisions. We placed a scrotal supporter. The catheter was left to gravity. The patient was then awakened and taken to the recovery room in stable condition. ? Intravenous Fluids: Per Anesthesia. ? Complications: None. ? Estimated Blood Loss: minimal ? Followup: Plan for catheter overnight with a void trial in the morning Complications No immediate complications Condition Stable Disposition PACU
[2022-03-09 15:49] LABS: Glucose Point of Care 148 mg/dl (65-105)
[2022-03-09] MEDS: fentaNYL CITRATE INJ (*CRX) 100 MCG/2 ML VIAL 25 MCG IV PUSH ×4 (16:05→16:35)
--- NOTE | 2022-03-09 17:09 | PC.NURSE ---
This patient, Ervin Davidson, was admitted to Medical Room 258-01. Patient/family oriented to hospital policies and general routines including ID bracelet, bed and alarms, visiting hours, pain management, procedures, bathroom and other care routines, personal items, smoking policy, room service/diet, and visiting hours. Information on how to activate the Rapid Response Team has been discussed. Patient/Family are encouraged to report perceived risks to care and to ask questions if they do not understand what they are told or what they should do.
[2022-03-09] MEDS: DEXTROSE 5%/0.45% SOD CHL 1,000 ML 125 ML IV CONT (17:29)
[2022-03-09] MEDS: DOCUSATE SODIUM 100 MG CAPSULE PO (17:30)
[2022-03-09] MEDS: HYDROcodone/acetaminophen (*CRX) 5-325 MG TABLET 1 TAB PO ×2 (17:35→22:23)
[2022-03-09] MEDS: TIMOLOL MALEATE 0.5% OP SOLN 5 ML BOTTLE 1 DROP EACH EYE (17:58)
[2022-03-09] MEDS: BRIMONIDINE TARTRATE 0.2% OP SOLN 5 ML BTL 1 DROP EACH EYE (19:21)
[2022-03-09] MEDS: LATANOPROST 0.005% OP SOLN 2.5 ML BTL 1 DROP EACH EYE (19:21)
[2022-03-10] MEDS: DEXTROSE 5%/0.45% SOD CHL 1,000 ML 125 ML IV CONT (01:28)
[2022-03-10 02:43] VITALS: BP 117/52; PULSE 53; RESP 20; TEMP 36.3; O2SAT 98
[2022-03-10] MEDS: HYDROcodone/acetaminophen (*CRX) 5-325 MG TABLET 1 TAB PO ×3 (04:56→15:19)
[2022-03-10 06:42] VITALS: BP 115/63; PULSE 57; RESP 18; TEMP 36.6; O2SAT 97
--- NOTE | 2022-03-10 08:14 | WPDANESPN ---
Anes - Prog Note Post-Op Date/Time: 03/10/22 08:14 Cardiovascular status: normal Respiratory status: normal Airway patency: baseline Mental status: baseline Post-Op hydration status: normal Vital Signs: Last Vital Signs Temp 36.6 C 03/10/22 06:42 Pulse 57 L 03/10/22 06:42 Resp 18 03/10/22 06:42 BP 115/63 03/10/22 06:42 Pulse Ox 97 03/10/22 06:42 O2 Del Method Room Air 03/09/22 20:00 O2 Flow Rate 2 03/09/22 16:50 Pain Score (VAS): 0 I/O: Intake & Output 03/09/22 03/10/22 03/10/22 23:59 07:59 15:59 Intake Total 400 1950 Output Total 400 1800 Balance 0 150 03/09/22 03/09/22 10:33 15:47 POC Capillary Glucose 146 H 148 H Post-procedural complaints: none Patient Feedback: Patient satisfied with anesthetic care.
[2022-03-10] MEDS: TIMOLOL MALEATE 0.5% OP SOLN 5 ML BOTTLE 1 DROP EACH EYE (08:24)
[2022-03-10] MEDS: DOCUSATE SODIUM 100 MG CAPSULE PO (08:24)
[2022-03-10] MEDS: MULTIVITAMINS THERAPEUTIC TAB (*BKC) 1 TABLET PO (08:24)
[2022-03-10] MEDS: BRIMONIDINE TARTRATE 0.2% OP SOLN 5 ML BTL 1 DROP EACH EYE (08:24)
[2022-03-10] MEDS: ENOXAPARIN 40 MG/0.4 ML SYRINGE SUB-Q (08:25)
[2022-03-10] MEDS: ATORVASTATIN 40 MG TABLET PO (08:25)
[2022-03-10 09:08] LABS: Glucose Point of Care 178 mg/dl (65-105)
[2022-03-10] MEDS: GENTAMICIN 80MG/SOD CHL 50 ML 80 MG/50 ML BAG 100 MG IVPB (12:05)
[2022-03-10] MEDS: WATER FOR IRRIGATION, STERILE 1,000 ML BOTTLE 1000 ML (12:06)
--- NOTE | 2022-03-10 12:35 | WPDUROPN2 ---
Progress Note: A&P Assessment and Plan (1) Stress incontinence: Code(s): N39.3 - Stress incontinence (female) (male) Status: Acute Assessment and Plan: He will urinate s/p mix removal and have a bladder scan done afterward, if unable to urinate replace a 16fr coude. Either way ok to discharge home this afternoon. Time Spent With Patient Time with patient: 25 - 35 minutes Subjective Subjective Date/Time Seen: 03/10/22 12:35 Cystoscopy, placement of AMS Advance Male Sling The patient is doing well, he is tolerating pain, diet and activity this afternoon. He was reluctant to get up and move about his room or use the restroom after his mix was removed, but I removed his dressing at the bedside and he stated this improved the pressure at the incision and hew as able to get up out of bed by himself and walk to the restroom unassisted. Post Op day: 1 Review of Systems Cardiovascular: Cardiovascular: Denies chest pain Respiratory: Respiratory: Reports no additional respiratory complaints Gastrointestinal: Gastrointestinal: Denies abdominal pain, Denies nausea and Denies vomiting Genitourinary: Genitourinary: Denies hematuria, Reports genital pain, Denies scrotal swelling and Reports urinary incontinence Exam Const: General: cooperative Resp: Effort & Inspection: normal respiratory effort Cardio: Rate: regular rate GI: GI Palp: Yes Soft to palpation and No Tenderness to palpation present (GI) : General: Yes no CVA tenderness Male General Exam: Yes tenderness and Yes other (perineal incision is well approximated, no drainage, edema or redness ) Meatus: meatus normal Scrotum: ecchymosis and not edematous Back/Spine/Pelvis: Back: no CVA tenderness Objective Data Vital Signs Vital Signs: Vital Signs - 24 hr 03/09/22 15:44 03/09/22 15:50 03/09/22 16:05 Temperature 99.2 F Pulse Rate 50 L 48 L 46 L Respiratory Rate 15 16 12 Blood Pressure 95/41 L 139/58 L 122/77 Pulse Oximetry 99 100 100 Oxygen Delivery Simple Face Mask Simple Face Mask Simple Face Mask Oxygen Flow Rate 8 8 8 03/09/22 16:20 03/09/22 16:35 03/09/22 16:50 Temperature Pulse Rate 46 L 48 L 52 L Respiratory Rate 12 12 12 Blood Pressure 138/74 120/79 122/84 Pulse Oximetry 98 99 99 Oxygen Delivery Nasal Cannula Nasal Cannula Nasal Cannula Oxygen Flow Rate 2 2 2 03/09/22 17:15 03/09/22 17:30 03/09/22 18:00 Temperature 97.2 F L 97.6 F 98.0 F Pulse Rate 48 L 48 L 63 Respiratory Rate 18 18 18 Blood Pressure 121/67 116/68 118/61 Pulse Oximetry 100 100 100 Oxygen Delivery Oxygen Flow Rate 03/09/22 19:00 03/09/22 20:00 03/09/22 22:48 Temperature 98.0 F 97.0 F L Pulse Rate 64 64 67 Respiratory Rate 18 18 18 Blood Pressure 120/64 102/55 L Pulse Oximetry 100 100 97 Oxygen Delivery Room Air Oxygen Flow Rate 03/10/22 02:43 03/10/22 06:42 03/10/22 08:00 Temperature 97.4 F L 97.9 F Pulse Rate 53 L 57 L Respiratory Rate 20 18 Blood Pressure 117/52 L 115/63 Pulse Oximetry 98 97 Oxygen Delivery Room Air Oxygen Flow Rate Intake/Output Intake/Output: Intake & Output 03/07/22 03/08/22 03/09/22 03/10/22 23:59 23:59 23:59 23:59 Intake Total 2009.75 2190 Output Total 400 1800 Balance 1609.75 390 Meds/Results Medications: Active Medications Generic Name Dose Route Start Last Admin Trade Name Freq PRN Reason Stop Dose Admin Hydrocodone Bitart/Acetaminophen 1 tab 03/09/22 15:50 03/10/22 10:44 Hydrocodone/Acetaminophen (*Crx) 5-325 Mg Tablet PO 1 tab Q4H PRN Administration Pain Rated 1-6 Albuterol 1.25 mg 03/09/22 16:58 Albuterol Sulfate Neb 2.5 Mg/3 Ml Inh INHALATION Q4-6H PRN Wheezing Atorvastatin Calcium 40 mg 03/10/22 09:00 03/10/22 08:25 Atorvastatin 40 Mg Tablet PO 40 mg QAM JAYLON Administration Brimonidine Tartrate 1 drop 03/09/22 21:00 03/10/22 08:24 Brimonidine Tartrate 0.2% Op Soln 5 Ml Btl EACH EYE 1
== END 2022-03-10 15:30 | disposition home or self-care (01) ==
LOC: ANHSURGERY 09:44 → ANH2MED 17:09
PROVIDERS: PCP Family Medicine Adolescent Medicine; Visit Provider Urology
PROC: (CPT 53440; principal; 2022-03-09 12:00)
DX: N39.3 Stress incontinence (female) (male) (principal); Z90.79 Acquired absence of other genital organ(s); H40.9 Unspecified glaucoma; E11.9 Type 2 diabetes mellitus without complications; J45.909 Unspecified asthma, uncomplicated; Z85.46 Personal history of malignant neoplasm of prostate; Z79.51 Long term (current) use of inhaled steroids; Z79.82 Long term (current) use of aspirin; Z79.84 Long term (current) use of oral hypoglycemic drugs; Z87.891 Personal history of nicotine dependence; E66.9 Obesity, unspecified; Z68.34 Body mass index [BMI] 34.0-34.9, adult
CPT/HCPCS: 53440; 36415; 80048; 82948; 87086; A9270; C1771; J0690; J1580; J1650; J2250; J2405; J2704; J3010; J3370; J7030; J7120

== ENCOUNTER 2022-05-16 09:17 | Day surgery (SDC) | payer MEDICARE, SELFPAY ==
[2022-04-29 14:01] VITALS: BMI 34.4
[2022-05-16 09:42] VITALS: BP 136/77; PULSE 49; RESP 18; TEMP 36.6; O2SAT 98; BMI 35.3
--- NOTE | 2022-05-16 09:47 | WPDANESEPPF ---
Anes - Initial Pre Proc Eval Procedure: Operation Date: 05/16/22 11:00 Proposed Procedures p Diagnostic Colonoscopy - Jim Perez MD Date/Time: 05/16/22 09:47 Surgeon: Jim Perez MD Pre Op Diagnosis: Positive Fit Test Patient Data Age: 67 Gender: M Height: 1.68 m Weight: 99.3 kg Last Vital Signs Temp 36.6 C 05/16/22 09:42 Pulse 49 L 05/16/22 09:42 Resp 18 05/16/22 09:42 BP 136/77 05/16/22 09:42 Pulse Ox 98 05/16/22 09:42 O2 Del Method Room Air 05/16/22 09:42 Allergies Allergy/AdvReac Type Severity Reaction Status Date / Time shrimp Allergy Intermediate Rash Verified 05/16/22 09:40 Home Medications Medication Instructions Recorded Confirmed Type albuterol sulfate 1.25 mg/3 mL 1.25 mg inhalation Q4-6H PRN 09/29/20 04/29/22 History solution for nebulization Wheezing brimonidine 0.2 %-timolol 0.5 % 1 drp EACH EYE Q12H 09/29/20 04/29/22 History eye drops (Combigan) latanoprost 0.005 % eye drops 1 drp EACH EYE HS 09/29/20 04/29/22 History multivitamin 1 tablet PO DAILY 10/20/20 05/16/22 History metformin 500 mg tablet,extended 2,000 mg PO DAILY #360 tabs 12/10/21 04/29/22 Rx release 24 hr sodium sul 1.479 gram-potas ch See Rx Instructions PO PER PKG DIR 12/15/21 03/02/22 Rx 0.188 gram-magnes sul 0.225 gram #24 tabs tablet (Sutab) atorvastatin 40 mg tablet 40 mg PO QAM #90 tabs 04/25/22 05/16/22 Rx Patient hx anesthesia problems: none Family hx anesthesia problems: none Results Review: All pre-operative results and documents have been reviewed as part of the pre-operative evaluation. [facility] Past Medical History Medical History Asthma Glaucoma History of prostate cancer Surgery 10/28 Kidney calculi Prostate cancer Surgery 10/28 Right inguinal hernia Type 2 diabetes mellitus Surgical History Surgical History H/O right inguinal hernia repair 10/28 History of prostatectomy 10/28 Hx of arthroscopy of right knee Hx of tonsillectomy Family History Family History Father Dementia Acute myocardial infarction Heart disease Mother Family history of thyroid problem History of diverticulitis Grandparent Lung cancer Diabetes mellitus Heart disease Social History Social History Smoking packs per day: 1 Smoking cigarettes per day: 20.0 Years smoked: 30 Smoking pack-years: 30.00 Smoking status: Former smoker Tobacco type: cigarettes Smoking end date: 07/10/04 Additional smoking assessment comments: STATES QUIT 2004? Alcohol intake: current Drinks per week: 1 Alcohol use details: STATES RARELY 2-3 DRINKS MONTH Substance use: never Substance use type: does not use Living arrangements: with family Gender identity (if verbalized by the patient): Male Sexual Orientation (if Verbalized by the Patient): Straight or Heterosexual Spiritual care concerns: No Anes - Eval Final PreProcedure Day of Procedure 05/16/22 09:47 Patient weight: obese Heart: regular rate and rhythm Lungs: clear to auscultation Airway: Mallampati scale class II Neurological: alert and oriented Last oral intake: >/= 8 hours ASA classification: III Emergent: no Anesthetic plan: proceed Anesthesia type and monitoring: general GIVS and standard monitoring Results Review: All pre-operative results and documents have been reviewed as part of the pre-operative evaluation. Informed Consent: The patient's anesthetic plan and its attendant risks and benefits were discussed with the patient/family/POA. Questions were solicited and answers provided to the satisfaction of the patient/family/POA.
[2022-05-16 10:04] LABS: Glucose Point of Care 138 mg/dl (65-105)
[2022-05-16] MEDS: LACTATED RINGERS 1,000 ML 150 ML IV CONT (10:07)
--- NOTE | 2022-05-16 10:24 | PM.HPGS ---
History of Present Illness History of Present Illness Consent: Risks, benefits, and alternatives have been discussed and questions answered. Patient agrees to proceed with procedure. Chief complaint: Positive Fit Test Narrative: Ervin Davidson is a 67 year old male Presents for colonoscopy. Patient recently found to have positive Hemoccult test. Patient denies any obvious blood in his stools. Patient reports that his current weight appetite and bowel movements are normal. He denies abdominal pain. He has had no bleeding. Family history noncontributory. Patient has previous colonoscopy 2011 was unremarkable. Review of Systems Review of Systems: Review of systems noncontributory. [facility] Past Medical History Medical History Asthma Glaucoma History of prostate cancer Surgery 10/28 Kidney calculi Prostate cancer Surgery 10/28 Right inguinal hernia Type 2 diabetes mellitus Surgical History Surgical History H/O right inguinal hernia repair 10/28 History of prostatectomy 10/28 Hx of arthroscopy of right knee Hx of tonsillectomy Family History Family History Father Dementia Acute myocardial infarction Heart disease Mother Family history of thyroid problem History of diverticulitis Grandparent Lung cancer Diabetes mellitus Heart disease Social History Social History Smoking packs per day: 1 Smoking cigarettes per day: 20.0 Years smoked: 30 Smoking pack-years: 30.00 Smoking status: Former smoker Tobacco type: cigarettes Smoking end date: 07/10/04 Additional smoking assessment comments: STATES QUIT 2004? Alcohol intake: current Drinks per week: 1 Alcohol use details: STATES RARELY 2-3 DRINKS MONTH Substance use: never Substance use type: does not use Living arrangements: with family Gender identity (if verbalized by the patient): Male Sexual Orientation (if Verbalized by the Patient): Straight or Heterosexual Spiritual care concerns: No Meds Home Medications and Allergies Home Medications Medication Instructions Recorded Confirmed Type albuterol sulfate 1.25 mg/3 mL 1.25 mg inhalation Q4-6H PRN 09/29/20 04/29/22 History solution for nebulization Wheezing brimonidine 0.2 %-timolol 0.5 % 1 drp EACH EYE Q12H 09/29/20 04/29/22 History eye drops (Combigan) latanoprost 0.005 % eye drops 1 drp EACH EYE HS 09/29/20 04/29/22 History multivitamin 1 tablet PO DAILY 10/20/20 05/16/22 History metformin 500 mg tablet,extended 2,000 mg PO DAILY #360 tabs 12/10/21 04/29/22 Rx release 24 hr sodium sul 1.479 gram-potas ch See Rx Instructions PO PER PKG DIR 12/15/21 03/02/22 Rx 0.188 gram-magnes sul 0.225 gram #24 tabs tablet (Sutab) atorvastatin 40 mg tablet 40 mg PO QAM #90 tabs 04/25/22 05/16/22 Rx Allergies Allergy/AdvReac Type Severity Reaction Status Date / Time shrimp Allergy Intermediate Rash Verified 05/16/22 09:40 Vital Signs Vital Signs - 24 hr 05/16/22 09:42 Temperature 97.8 F Pulse Rate 49 L Respiratory Rate 18 Blood Pressure 136/77 Pulse Oximetry 98 Oxygen Delivery Room Air Exam Narrative: Physical exam reveals patient to be alert. Vital signs stable. HEENT exam is unremarkable. Patient is anicteric. Lungs are clear to auscultation and percussion. Heart is without murmur or extra sounds. Abdomen bowel sounds present soft nontender with no organomegaly. Digital external rectal exam normal. Assessment and Plan Assessment and plan (1) Occult blood in stools: Code(s): R19.5 - Other fecal abnormalities Status: Acute Assessment and Plan: Patient found to have Hemoccult-positive stools. Plan for surveillance colonoscopy at this time. Has been 10 years since last exam.
--- NOTE | 2022-05-16 10:57 | WPDANESPN ---
Anes - Prog Note Post-Op Date/Time: 05/16/22 10:57 Cardiovascular status: normal Respiratory status: normal Airway patency: baseline Mental status: baseline Post-Op hydration status: normal Vital Signs: Last Vital Signs Temp 36.6 C 05/16/22 09:42 Pulse 49 L 05/16/22 09:42 Resp 18 05/16/22 09:42 BP 136/77 05/16/22 09:42 Pulse Ox 98 05/16/22 09:42 O2 Del Method Room Air 05/16/22 09:42 Pain Score (VAS): 0/10 05/16/22 10:01 POC Capillary Glucose 138 H Patient Feedback: Patient satisfied with anesthetic care.
[2022-05-16 11:00] VITALS: BP 116/73; PULSE 48; RESP 16; O2SAT 98
[2022-05-16 11:10] VITALS: BP 123/70; PULSE 51; RESP 20; O2SAT 98
[2022-05-16 11:34] VITALS: BP 112/73; PULSE 59; RESP 18; O2SAT 93
== END 2022-05-16 11:33 | disposition home or self-care (01) ==
PROVIDERS: PCP Family Medicine Adolescent Medicine; Visit Provider Internal Medicine Gastroenterology
PROC: 0DJD8ZZ Inspection of Lower Intestinal Tract, Via Natural or Artificial Opening Endoscopic (ICD-10-PCS; CPT 45378; principal; 2022-05-16 11:00)
DX: Z12.11 Encounter for screening for malignant neoplasm of colon (principal)
CPT/HCPCS: 45378

== ENCOUNTER 2023-01-28 16:20 | Emergency (ER) | payer MEDICARE, SELFPAY ==
--- NOTE | ~2023-01-28 | CT_ITS ---
EXAMINATION: CT abdomen pelvis wo con DATE: 01/28/2023 17:26 INDICATION: right flank pain, hematuria TECHNIQUE: Computed tomography (CT) of the abdomen and pelvis was performed without intravenous contr ast. Automated exposure control and iterative reconstruction technique were employed. The dose-length product was 1288.82 mGy-cm. COMPARISON: 09/23/2021 and 04/24/2020. FINDINGS: Lower thorax: Multiple stable peripheral granulomas. Mild coronary artery calcification. Liver: Normal. Biliary/Gallbladder: Cholelithiasis. No inflammatory changes. No bile duct dilation. Pancreas: No mass or duct dilation. Spleen: Normal. Adrenals:No mass. Kidneys: Moderate right perinephric stranding. Mild pelviectasis, caliectasis, and ureterectasis on t he right. Simple left upper pole cyst. Punctate bilateral upper pole and left midpole nonobstructing calcifications. GI tract: No small or large bowel dilation. Normal appendix. Mild diverticulosis without diverticulit is. Mesentery/Peritoneum: No ascites, mass, or free air. Retroperitoneum: No mass. Mild atherosclerotic abdominal aortic and/or arterial calcifications. Pelvis: Empty urinary bladder. 3 mm distal right ureteral stone. Soft Tissues: Uncomplicated small fat-containing umbilical and bilateral inguinal hernias Bones: No acute osseous finding. IMPRESSION: 3 mm distal right ureteral stone just proximal to the right UVJ, causing mild-moderate obstructive ur opathy Reviewed, dictated and finalized at location K. IMPRESSION: 3 mm distal right ureteral stone just proximal to the right UVJ, causing mild-m oderate obstructive uropathy
[2023-01-28 16:28] VITALS: BP 165/74; PULSE 49; RESP 18; TEMP 36.6; O2SAT 100
[2023-01-28 16:54] LABS: Basophils Absolute Auto 0.1 K/mm3 (0.0-0.1); Basophils Percent Auto 0.5 % (0.2-1.2); Eosinophils Absolute Auto 0.1 K/mm3 (0-0.3); Eosinophils Percent Auto 1.1 % (0-4.4); Hematocrit 43.9 % (42.0-52.0); Hemoglobin 14.8 g/dL (14.0-18.0); Immature Granulocyte Absolute 0.03 K/mm3 (0.00-0.031); Immature Granulocyte Percent A 0.2 % (0-0.5); Lymphocytes Absolute Auto 1.82 K/mm3 (0.9-3.2); Lymphocytes Percent Auto 15.2 % (18.3-44.2); Mean Corpuscular HGB Conc 33.7 g/dl (32-36); Mean Corpuscular Hemoglobin 31.4 pg (26-34); Mean Corpuscular Volume 93.2 fl (80-100); Mean Platelet Volume 10.6 fl (7.4-10.4); Monocytes Absolute Auto 0.9 K/mm3 (0.1-0.6); Monocytes Percent Auto 7.7 % (2.6-8.5); Neutrophils Absolute Auto 9.1 K/mm3 (1.3-6.7); Neutrophils Percent Auto 75.3 % (45.5-73.1); Platelet Count Result 288 k/mm3 (150-375); Red Blood Count 4.71 M/mm3 (4.6-6.20); Red Cell Distribution Width 13.8 % (11.5-14.5)
[2023-01-28 17:05] LABS: Appearance Urine Cloudy (Clear); Bacteria Urine None Seen /hpf; Bilirubin Urine 1+ (Negative); Blood Urine Negative (Negative); Calcium Oxalate Crystals Urine Present /hpf; Color Urine Dark Yellow (Yellow); Glucose Urine UA Negative (Negative); Ketones Urine Trace mg/dL (Negative); Leukocyte Esterase Ur Negative LEU/UL (Negative); Nitrate Urine Negative (Negative); Protein Urine 2+ mg/dL (Negative); Squamous Epithelial Cell Urine None seen /hpf (Few); WBC Urine 0-5 /hpf
[2023-01-28 17:07] LABS: Specific Grav Ur 1.045 (1.001-1.035)
[2023-01-28 17:08] LABS: Add Urine Microscopic? YES
--- NOTE | 2023-01-28 17:42 | ED.GENADULT ---
HPI - General Adult General Chief complaint: Urogenital-Male Stated complaint: Kidney stone Time Seen by Provider: 01/28/23 16:47 History of Present Illness HPI narrative: 67-year-old male with history of kidney stones presented to ED for evaluation of right flank pain. Patient does have prior history of kidney stones and has had follow-up with [facility] and [facility]. Patient states that he began having worsening right flank pain. Patient has never had any procedures to help pass the stones as passed his previous stones on his own. Related Data Home Medications Medication Instructions Recorded Confirmed albuterol sulfate 1.25 mg/3 mL 1.25 mg inhalation Q4-6H PRN 09/29/20 11/14/22 solution for nebulization Wheezing multivitamin 1 tablet PO DAILY 10/20/20 11/14/22 aspirin 81 mg tablet,delayed 81 mg PO DAILY 11/14/22 11/14/22 release (Adult Aspirin Regimen) netarsudil 0.02 %-latanoprost 1 drp EACH EYE DAILY 11/14/22 11/14/22 0.005 % eye drops ([facility]) Allergies Allergy/AdvReac Type Severity Reaction Status Date / Time shrimp Allergy Intermediate Rash Verified 01/28/23 16:53 Review of Systems Review of Systems: All systems reviewed & are unremarkable except as noted in HPI and below PMFSH Past Medical History Medical History Asthma Glaucoma History of prostate cancer Surgery 10/28 Kidney calculi Prostate cancer Surgery 10/28 Right inguinal hernia Type 2 diabetes mellitus Surgical History Surgical History H/O right inguinal hernia repair 10/28 History of prostatectomy 10/28 Hx of arthroscopy of right knee Hx of tonsillectomy Family History Family History Father Dementia Acute myocardial infarction Heart disease Mother Family history of thyroid problem History of diverticulitis Grandparent Lung cancer Diabetes mellitus Heart disease Social History Social History Smoking packs per day: 1 Smoking cigarettes per day: 20.0 Years smoked: 30 Smoking pack-years: 30.00 Smoking status: Former smoker Tobacco type: cigarettes Smoking end date: 07/10/04 Additional smoking assessment comments: STATES QUIT 2004? Alcohol intake: current Drinks per week: 1 Alcohol use details: STATES RARELY 2-3 DRINKS MONTH Substance use: never Substance use type: does not use Living arrangements: with family Occupation/Education: retired Gender identity (if verbalized by the patient): Male Sexual Orientation (if Verbalized by the Patient): Straight or Heterosexual Spiritual care concerns: No Exam Narrative: APPEARANCE: Uncomfortable due to flank pain HEAD: normocephalic, atraumatic. EYES: PERRLA/EOMI, conjunctivae clear. NOSE: Normal no drainage EARS:TMS clear with good light reflex. THROAT: Pharynx clear, no exudate. NECK: Supple. No adenopathy, no masses. RESPIRATORY: Airway patent, respirations nonlabored. Clear to auscultation bilaterally, no rales, rhonchi, wheezing. CARDIOVASCULAR: Regular rate and rhythm without murmurs rubs or gallops. ABDOMINAL: Right CVA tenderness MUSCULOSKELETAL: Moves all extremities. Strength/ROM intact, No edema, No calf tenderness. NEURO: Alert. Cranial nerves II through XII intact. Grossly intact SKIN: Warm, dry. Normal Color Course Course Emergency Course: 67-year-old male present emerged department for evaluation of right flank pain. Patient was afebrile with a minor leukocytosis and a stable hemoglobin. Patient has normal kidney function. CT scan did show evidence of a right distal stone 3 mm. Patient was treated with Toradol, Flomax and Dilaudid and did feel improved with treatment. Patient was provided outpatient follow-up with urology. Vital Signs Vital signs: Vital Signs Temperature 9
[2023-01-28] MEDS: HYDROmorphone HCL INJ (*CRX) 1 MG/ML SYR IV PUSH (17:44)
[2023-01-28] MEDS: ONDANSETRON INJ 4 MG/2 ML VIAL IV PUSH (17:44)
[2023-01-28] MEDS: TAMSULOSIN HCL 0.4 MG CAPSULE PO (17:56)
[2023-01-28] MEDS: KETOROLAC 15 MG/ML VIAL (*BKC) IV PUSH (17:56)
[2023-01-28 18:09] LABS: Alanine Aminotransferase 42 U/L (6-50); Albumin Level 4.5 g/dL (3.5-5.1); Alkaline Phosphatase 65 U/L (38-126); Anion Gap 10 mmol/L (8-16); Aspartate Amino Transferase 35 U/L (17-59); Bilirubin,Total 0.7 mg/dL (0.2-1.3); Blood Urea Nitrogen 18 mg/dL (9-20); Calcium 9.6 mg/dL (8.4-10.2); Carbon Dioxide 28 mmol/L (22-30); Chloride 103 mmol/L (98-107); Estimated CRCL calculation 68 ml/min; Estimated Glomerular Filt Rate > 60; Glucose 148 mg/dL (65-110); Potassium 4.7 mmol/L (3.4-5.0); Sodium 141 mmol/L (137-145)
[2023-01-28 19:00] VITALS: BP 136/82; PULSE 84; RESP 19; O2SAT 97
== END 2023-01-28 19:04 | disposition home or self-care (01) ==
PROVIDERS: Emergency Provider Emergency Medicine; PCP Family Medicine Adolescent Medicine
DX: N20.0 Calculus of kidney (principal); E11.9 Type 2 diabetes mellitus without complications; Z85.46 Personal history of malignant neoplasm of prostate; Z87.891 Personal history of nicotine dependence
CPT/HCPCS: 36415; 74176; 80053; 81001; 85025; 96374; 96375; 99284; A9270; J1170; J1885; J2405

== ENCOUNTER 2023-12-15 13:13 | Outpatient (CLI) | payer MEDICARE, SELFPAY ==
--- NOTE | ~2023-12-15 | XR_ITS ---
XR lumbar spine 2-3V DATE: 12/15/2023 14:01 INDICATION: Low back pain TECHNIQUE: Standing AP, lateral, cone-down lateral lumbosacral views COMPARISON: None FINDINGS: Two 2.5 cm eggshell calcifications overlying right upper quadrant, likely calcified gallsto emerald. 22 degrees rotatory levoscoliosis measured from T12 to L4. Moderate degenerative disc disease of the lumbar and lumbosacral spine. No fracture or bone destructi on nor spondylolisthesis is evident. Included lower thoracic and lumbar pedicles are intact. The sacroiliac joints appear normal. IMPRESSION: Cholelithiasis 22 degrees rotatory levoscoliosis of the lumbar spine Moderate multilevel degenerative disc disease Reviewed, dictated and finalized at location A.
== END 2023-12-15 13:14 ==
PROVIDERS: PCP Family Medicine Adolescent Medicine; Visit Provider Family Medicine Adolescent Medicine
DX: K80.20 Calculus of gallbladder without cholecystitis without obstruction (principal); M51.36 Other intervertebral disc degeneration, lumbar region
CPT/HCPCS: 72100

== ENCOUNTER → 2025-03-17 11:48 | Outpatient (CLI) | payer MEDICARE, SELFPAY ==
--- NOTE | ~2025-03-17 | XR_ITS ---
XR thoracic spine 3V 03/17/2025 12:10 Indication: Back pain Procedure: 4 views thoracic spine Comparison: No prior studies for comparison. Findings: Mild thoracic spondylosis. Mild dextrocurvature of the thoracic spine. No acute fracture, subluxation or dislocation. There is a probable gallstone in the right upper abdomen. No paraspinal soft tissue abnormality. Surrounding osseous structures within normal limits. Impression: 1: Mild thoracic spondylosis. Reviewed, dictated and finalized at location O. Impression: 1: Mild thoracic spondylosis.
== END ==
PROVIDERS: PCP Family Medicine Adolescent Medicine; Visit Provider Family Medicine
DX: M47.894 Other spondylosis, thoracic region (principal)
CPT/HCPCS: 72072

== ENCOUNTER 2025-03-26 12:21 | Emergency (ER) | payer MEDICARE, SELFPAY ==
--- NOTE | ~2025-03-26 | CT_ITS ---
EXAMINATION:CT diagnostic chest wo con DATE: 03/26/2025 14:06 INDICATION: Right rib fracture. Cough. TECHNIQUE: Computed tomography (CT) of the chest was performed without intravenous contrast. Automated exposure control and iterative reconstruction technique were employed. The dose-length product (DLP) was 431.01 mGy-cm. COMPARISON: CT abdomen and pelvis 01/28/2023 FINDINGS: There is a 3 mm nodule in right lung upper lobe, likely benign. There is mild atelectasis bilaterally. There is a 3 mm nodule in left lower lobe, likely benign. No pleural effusion. The heart size is normal. There are coronary artery calcifications. No pericardial effusion. There is mild bilateral gynecomastia. There are gallstones in the gallbladder, which is normal in size. There is a small sliding hiatal hernia. The ribs are unremarkable. There is severe cervical spondylosis and mild thoracic spondylosis. There is mild chronic anterior wedging of L1 vertebral body. IMPRESSION: 1. Small sliding hiatal hernia. Reviewed, dictated and finalized at location E.
[2025-03-26 12:18] VITALS: BP 142/77; PULSE 55; RESP 18; TEMP 36.6; O2SAT 99
[2025-03-26] MEDS: HYDROcodone/acetaminophen (*CRX) 5-325 MG TABLET 1 TAB PO (13:43)
--- NOTE | 2025-03-26 15:31 | ED.BACK ---
HPI - Back Pain/Injury General Chief Complaint: Back Pain/Injury Stated Complaint: back pain Time Seen by Provider: 03/26/25 12:50 History of Present Illness HPI Narrative: Patient is a 70-year-old male who presents ER with back pain. Ongoing over last 1 and half to 2 weeks. He was mowing the lawn outside and lifted up a 200 lb trampoline. He developed pain in the right back between the spine and shoulder blade. He has been taking anti-inflammatories muscle relaxers without improvement. No numbness or tingling to the arms or legs. He feels good when he is lying down flat but when he sits straight up he developed pain after 5 minutes. He has had an x-ray of the thoracic spine that showed no fracture. No difficulty breathing or swallowing. No chest pain. Related Data Home Medications ?Medication ?Instructions ?Recorded ?Confirmed ?Last Taken ?Type albuterol sulfate 1.25 mg/3 mL 1.25 mg inhalation Q4-6H PRN 09/29/20 03/17/25 10/25/20 History solution for nebulization Wheezing multivitamin 1 tablet PO DAILY 10/20/20 03/17/25 10/22/20 History aspirin 81 mg tablet,delayed 81 mg PO DAILY 11/14/22 03/17/25 Unknown History release (Adult Aspirin Regimen) netarsudil 0.02 %-latanoprost 1 drp EACH EYE DAILY 11/14/22 03/17/25 Unknown History 0.005 % eye drops (Rocklatan) omega-3 fatty acids 500 mg capsule 500 mg PO DAILY 01/22/25 03/17/25 Unknown History Allergies Allergy/AdvReac Type Severity Reaction Status Date / Time shrimp Allergy Intermediate Rash Verified 03/26/25 12:24 Review of Systems Review of Systems: All systems reviewed & are unremarkable except as noted in HPI and below Constitutional: Constitutional: Reports no additional constitutional complaints Cardiovascular: Cardiovascular: Reports no additional cardiovascular complaints Respiratory: Respiratory: Reports no additional respiratory complaints Musculoskeletal: Musculoskeletal: Reports no additional musculoskeletal complaints [facility] Past Medical History Medical History (Updated 03/26/25 @ 15:34 by Kai Mathew MD) Type 2 diabetes mellitus with hyperglycemia Aortic atherosclerosis (01/2023) CT 01/29 Pure hypercholesterolemia, unspecified BMI 35.0-35.9,adult History of prostate cancer Surgery 10/28 Asthma Kidney calculi Glaucoma Right inguinal hernia Surgical History Surgical History History of prostatectomy 10/28 H/O right inguinal hernia repair 10/28 Hx of tonsillectomy Hx of arthroscopy of right knee Family History Family History (Updated 01/22/25 @ 09:29 by SHERICE Vasquez) Father Dementia Acute myocardial infarction Heart disease Mother Family history of thyroid problem History of diverticulitis Grandparent Lung cancer Diabetes mellitus Heart disease Social History Social History (Updated 01/22/25 @ 09:30 by SHERICE Vasquez) Smoking packs per day: 1 Smoking cigarettes per day: 20.0 Years smoked: 30 Smoking pack-years: 30.00 Smoking status: Former smoker Tobacco type: cigarettes Second hand tobacco smoke exposure: No Smoking end date: 07/10/04 Additional smoking assessment comments: STATES QUIT 2004? Alcohol intake: current Drinks per week: 1 Alcohol use details: STATES RARELY 2-3 DRINKS MONTH Substance use: current Substance use type: marijuana Other substance usage details: CBD gummies for sleep. 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 HEAD: Normocephalic, atraumatic. ENT: Mucous membranes moist. CHEST: Clear to auscultation. No respiratory distress. HEART: Regular rate and rhythm. Normal peripheral pulses. BACK: No midline tenderness of the T/L-spine. There is tenderness of the rhomboid musculature between the scapula and T-spine in the right side. No bruising or swelling. Small rash near T1/T2 but is nonvesicular. EXTREMITIES: Normal range of motion. No edema. SKIN: Warm, dry, no rash. NEURO: Alert and oriented x3. PSYCH: Normal mood and affect. Course Course Emergency Course: Patient informed of results. Will refer to spine as I am unsure what is causing his pain. He may have a muscle strain of the paraspinal musculature/stabilizers given that his pain is worse with sitting up however I would expect him to have had significant improvement by now. Vital Signs Vital signs: Vital Signs Temperature 97.8 F 03/26/25 12:18 Pulse Rate 55 L 03/26/25 12:18 Respiratory Rate 18 03/26/25 12:18 Oxygen Delivery Room Air 03/26/25 12:18 Temperature 97.8 F 03/26/25 12:18 Pulse Rate 55 L 03/26/25 12:18 Respiratory Rate 18 03/26/25 12:18 Oxygen Delivery Room Air 03/26/25 12:18 MDM - Back Pain/Injury Imaging Data Radiologist's impression: ITS Impressions Chest CT 03/26/25 14:20 IMPRESSION: 1. Small sliding hiatal hernia. Discharge Plan Discharge Clinical Impression: Back pain, thoracic Patient Disposition: Home Condition: Stable Instructions: Thoracic Pain (ED) Additional Instructions: Please return to the emergency department if you develop severe pain that is not controlled by pain medications or if you are unable to walk because of pain or weakness. Return to the emergency department immediately if you develop fevers, loss of bowel or bladder control (dribbling of urine or having accidents you wouldn't normally have), inability to urinate, numbness of your genital or anal area, or weakness/numbness of your legs or arms as these could all be signs of a serious medical emergency. Patient Language: [place] Prescriptions: New diazepam [Valium] 5 mg tablet 5 mg PO BID PRN (Reason: muscle spasm) Qty: 10 0RF diazepam [Valium] 5 mg tablet 2.5 mg PO BID PRN (Reason: muscle spasm) Qty: 7 0RF No Action Rocklatan 0.02-0.005 % drops 1 drp EACH EYE DAILY aspirin [Adult Aspirin Regimen] 81 mg tablet,delayed release (DR/EC) 81 mg PO DAILY albuterol sulfate 1.25 mg/3 mL solution for nebulization 1.25 mg inhalation Q4-6H PRN (Reason: Wheezing) omega-3 fatty acids 500 mg capsule 500 mg PO DAILY pioglitazone 30 mg tablet 30 mg PO DAILY Qty: 90 1RF cyclobenzaprine 5 mg tablet 5 mg PO TID PRN (Reason: muscle spasm) Qty: 20 0RF multivitamin Tablet 1 tablet PO DAILY albuterol sulfate 90 mcg/actuation HFA aerosol inhaler 1 inh inhalation Q4H PRN (Reason: shortness of breath or wheezing) Qty: 8.5 2RF atorvastatin 40 mg tablet See Rx Instructions .ROUTE .COMPLEX Qty: 90 0RF Dose Instruction: TAKE 1 TABLET BY MOUTH EVERY DAY IN THE MORNING Rx Instructions: TAKE 1 TABLET BY MOUTH EVERY DAY IN THE MORNING metformin 500 mg tablet extended release 24 hr See Rx Instructions .ROUTE .COMPLEX Qty: 360 1RF Dose Instruction: TAKE 4 TABLETS BY MOUTH DAILY Rx Instructions: TAKE 4 TABLETS BY MOUTH DAILY hydrochlorothiazide 25 mg tablet 25 mg PO DAILY Qty: 90 3RF allopurinol 300 mg tablet 300 mg PO DAILY Qty: 90 3RF Ozempic 0.25 mg or 0.5 mg (2 mg/3 mL) pen injector 0.25 mg subcut WEEKLY Qty: 3 0RF Rx Instructions: for 4 weeks Follow-up/Referrals: Mason Dumont MD [Primary Care Provider, Family Practice] - 1 Week
[2025-03-26] MEDS: diazePAM (*CRX) 2.5 MG TABLET PO (15:42)
[2025-03-26 16:24] VITALS: BP 157/66; PULSE 57; RESP 18; O2SAT 99
== END 2025-03-26 16:25 | disposition home or self-care (01) ==
PROVIDERS: Emergency Provider Emergency Medicine; PCP Family Medicine Adolescent Medicine
DX: M54.6 Pain in thoracic spine (principal); E11.9 Type 2 diabetes mellitus without complications; Z85.46 Personal history of malignant neoplasm of prostate; Z87.891 Personal history of nicotine dependence
CPT/HCPCS: 71250; 99284; A9270